=== PATIENT | male | born 1945 | race Caucasian/White ===

== ENCOUNTER → 2021-11-14 | Outpatient (CLI) | payer MEDICARE ==
--- NOTE | 2021-11-14 15:17 | PE ---
Nuclear medicine PET/CT HISTORY: Right upper lobe lung nodule, initial Patient received 10 mCi F-18 FDG intravenously and delayed scanning was performed from the skull base to the mid thighs. An attenuation correction and localization CT scan was performed. No comparisons Chest and neck: There is some asymmetric uptake along the musculature adjacent to the lamina of C2 ve rtebral body which may be due to to muscle contraction but is indeterminate. Uptake at the level of t he vallecula and base of the tongue may be physiologic but is also indeterminate. There is no cervica l or supraclavicular adenopathy. Right upper lobe lung nodule is present in the subpleural location p osteriorly measuring only 1 cm in size. There is no endobronchial lesion, pleural or pericardial effu kristy. Extensive emphysematous changes are suspected. There is no mediastinal or hilar adenopathy. Lef t axilla shows an enlarged node measuring approximately 11 mm in short axis, 2.8 cm in AP dimension, there is some associated uptake present. In the right axilla there are some small nodes with some mil d uptake noted. Coronary artery calcifications noted incidentally. ABDOMEN: Suspect there is some cortical thinning, scarring involving the right kidney. No adrenal upt joyce. Cholelithiasis is noted, no suspicious liver uptake or retroperitoneal adenopathy. Right and lef t groin also show nodes with some mild uptake but is not enlarged. No free fluid in the pelvis. Osseous structures show no suspicious uptake. IMPRESSION: Findings in the neck are nonspecific, dedicated contrast-enhanced neck CT may be of benef it. Right upper lobe lung nodule is suspicious. Indeterminate lashonda uptake as described.
== END | disposition home or self-care (01) ==
LOC: RADPETMAIN 10:51
PROVIDERS: ATTEND Family Medicine
DX: R91.1 Solitary pulmonary nodule (principal)
CPT/HCPCS: 78815; A9552

== ENCOUNTER → 2022-07-03 | Outpatient (CLI) | payer MEDICARE ==
--- NOTE | 2022-07-03 12:34 | CT ---
EXAMINATION TYPE: CT chest w con DATE OF EXAM: 07/03/2022 COMPARISON: PET CT November 14, 2021 HISTORY: nodules, recent covid/pneumonia CT DLP: 624 mGycm. Automated Exposure Control for Dose Reduction was Utilized. TECHNIQUE: CT scan of the thorax is performed following with IV Contrast, patient injected with 70cc mL of Isovue 300. FINDINGS: LUNGS: Moderate diffuse underlying emphysematous change is identified. Fairly stable 9 mm peripheral right upper lobe nodule axial image 20 from PET/CT. No new greater than 5 mm pulmonary nodules or mas ses. There is new irregular consolidation with air bronchograms in the right middle lobe and some adj acent groundglass opacity correlating with patient's history of recent pneumonia. Some less prominent irregular consolidation medial right lower lobe axial image 56 is noted. Left lung grossly clear. MEDIASTINUM: There are no new greater than 1 cm hilar or mediastinal lymph nodes. Small pericardial e ffusion is redemonstrated. Coronary artery calcification is again seen. No cardiomegaly. There is mod erate to severe peripheral plaque in the left subclavian artery causing stenosis under 50%. OTHER: Slightly prominent but subcentimeter benign-appearing bilateral axillary lymph nodes are redem onstrated. Intraluminal gallstones in contracted gallbladder redemonstrated. There are prominent but simple appearing thin-walled cyst in the right kidney mid to lower pole level redemonstrated. IMPRESSION: Stable slightly hypermetabolic near 1.0 cm posterior right upper lobe nodule. No new nodu les or adenopathy seen.
== END | disposition home or self-care (01) ==
LOC: RADCTMAIN 10:56
PROVIDERS: ATTEND Internal Medicine Critical Care Medicine
DX: R91.1 Solitary pulmonary nodule (principal)
CPT/HCPCS: 82565; 84520; 71260; 36415; Q9967

== ENCOUNTER 2023-03-29 15:05 | Inpatient (IN) | payer MEDICARE ==
[2023-03-29] MEDS ORDERED: IPRATROPIUM 0.5 MG/2.5 ML NEBU INHALATION STA (15:19)
[2023-03-29] MEDS ORDERED: methylPREDNISolone SOD SUCCI 125 MG/2 ML VIAL IV STA (15:19)
[2023-03-29] MEDS ORDERED: SODIUM CHLORIDE 0.9% 500 ML 500 ML IV STA (15:19)
[2023-03-29] MEDS ORDERED: ALBUTEROL NEBULIZED 2.5 MG/3 ML INHALATION STA (15:19)
--- NOTE | 2023-03-29 15:23 | ED ---
General Adult HPI - General Chief complaint: Shortness of Breath Stated complaint: SOB Time Seen by Provider: 03/29/23 15:10 Source: patient, RN notes reviewed, old records reviewed Mode of arrival: ambulatory Limitations: no limitations - History of Present Illness Initial comments: This is a 77-year-old male who presents emergency Department with a past medical history significant for emphysema. Patient continues to smoke. Patient states over the last few days his breathing is getting considerably worse and he spent doing treatments every 4 hours and it's not helping. Patient states he is not on any home steroids at this time. Patient states he has been coughing a lot more coughing up quite a bit of sputum. Patient denies any fever chills. Patient denies any headache patient denies numbness weakness. Patient denies chest pain. Patient denies any palpitations. Patient denies any swelling in the legs or calf tenderness. - Related Data Allergies Allergy/AdvReac Type Severity Reaction Status Date / Time No Known Allergies Allergy Verified 03/29/23 15:09 Review of Systems ROS Statement: Those systems with pertinent positive or pertinent negative responses have been documented in the HPI. ROS Other: All systems not noted in ROS Statement are negative. Past Medical History Past Medical History: COPD History of Any Multi-Drug Resistant Organisms: None Reported Past Surgical History: No Surgical Hx Reported Smoking Status: Current every day smoker Past Alcohol Use History: None Reported Past Drug Use History: None Reported General Exam - General Exam Comments Initial Comments: GENERAL: Patient is well-developed and well-nourished. Patient is nontoxic and well- hydrated and is in moderate distress. ENT: Neck is soft and supple. No significant lymphadenopathy is noted. Oropharynx is clear. Moist mucous membranes. Neck has full range of motion without eliciting any pain. EYES: The sclera were anicteric and conjunctiva were pink and moist. Extraocular movements were intact and pupils were equal round and reactive to light. Eyelids were unremarkable. PULMONARY: Expiratory wheezing with diminished breath sounds CARDIOVASCULAR: There is a regular rate and rhythm without any murmurs gallops or rubs. ABDOMEN: Soft and nontender with normal bowel sounds. SKIN: Skin is clear with no lesions or rashes and otherwise unremarkable. NEUROLOGIC: Patient is alert and oriented x3. Cranial nerves II through XII are grossly intact. Motor and sensory are also intact. Normal speech, volume and content. Symmetrical smile. MUSCULOSKELETAL: Normal extremities with adequate strength and full range of motion. No lower extremity swelling or edema. No calf tenderness. LYMPHATICS: No significant lymphadenopathy is noted PSYCHIATRIC: Normal psychiatric evaluation. Limitations: no limitations Course Vital Signs 03/29/23 03/29/23 03/29/23 15:07 15:32 15:54 Temperature 98.1 F Pulse Rate 101 H 102 H Respiratory 28 H 24 Rate Blood Pressure 191/82 O2 Sat by Pulse 89 L Oximetry 03/29/23 03/29/23 03/29/23 16:05 16:14 16:24 Temperature Pulse Rate 102 H 98 98 Respiratory Rate Blood Pressure O2 Sat by Pulse Oximetry Medical Decision Making - Medical Decision Making EKG was interpreted by myself shows a sinus rhythm at 90 bpm AL interval 156 dresses 70 922 intervals 326 QTC is 381. Patient's EKG shows no ST segment elevation or depression Was pt. sent in by a medical professional or institution (, PA, BAG ADJUSTER, urgent care, hospital, or alf...) When possible be specific @ -No Did you speak to anyone other than the patient for history (EMS, parent, family, police, friend...)? What history was obtained from this source @ -Patient's sons gave some of the history Did you review nursing and triage notes (agree or disagree)? Why? @ -I reviewed and agree with nursing and triage notes Were old charts reviewed (outside hosp., previous admission, EMS record, old EKG, old radiological studies, urgent care reports/EKG's, alf records)? Report findings @ -I reviewed prior radiological studies and prior lab work on this patient Differential Diagnosis (chest pain, altered mental status, abdominal pain women, abdominal pain men, vaginal bleeding, weakness, fever, dyspnea, syncope, headache, dizziness, GI bleed, back pain, seizure, CVA, palpatations, mental health, musculoskeletal)? @ -Differential Dyspnea: Coronary syndrome, arrhythmia, tamponade, asthma, COPD, pulmonary embolism, pneumonia, pneumothorax, pulmonary effusion, anaphylaxis, diabetic ketoacidosis, flailed chest, pulmonary contusion, diaphragmatic rupture, anemia, neuromuscular, this is not meant to be an all-inclusive list. EKG interpreted by me (3pts min.). @ -As above X-rays interpreted by me (1pt min.). @ -Chest x-ray showed no acute abnormality CT interpreted by me (1pt min.). @ -None done U/S interpreted by me (1pt. min.). @ -None done What testing was considered but not performed or refused? (CT, X-rays, U/S, labs)? Why? @ -None What meds were considered but not given or refused? Why? @ -None Did you discuss the management of the patient with other professionals (professionals i.e. , PA, BAG ADJUSTER, lab, RT, psych nurse, psychosocial rehabilitation counselor, final finisher forging dies, teacher, loans officer, bottle caser)? Give summary @ -I spoke with some physicians agreed to admit the patient admitted the patient I wrote admitting orders Was smoking cessation discussed for >3mins.? @ -Yes Was critical care preformed (if so, how long)? @ -No Were there social determinants of health that impacted care today? How? (Homelessness, low income, unemployed, alcoholism, drug addiction, transportation, low edu. Level, literacy, decrease access to med. care, fdc, rehab)? @ -No Was there de-escalation of care discussed even if they declined (Discuss DNR or withdrawal of care, Hospice)? DNR status @ -No What co-morbidities impacted this encounter? (DM, HTN, Smoking, COPD, CAD, Cancer, CVA, ARF, Chemo, Hep., AIDS, mental health diagnosis, sleep apnea, morbid obesity)? @ -None Was patient admitted / discharged? Hospital course, mention meds given and route, prescriptions, significant lab abnormalities, going to OR and other pertinent info. @ -Patient received multiple breathing treatments and steroids in the emergency department he was feeling considerably better at this time. Patient also was given antibiotics 1 g of Rocephin at this time Undiagnosed new problem with uncertain prognosis? @ -No Drug Therapy requiring intensive monitoring for toxicity (Heparin, Nitro, Insulin, Cardizem)? @ -No Were any procedures done? @ -No Diagnosis/symptom? @ -Acute exacerbation of COPD Acute, or Chronic, or Acute on Chronic? @ -Acute Uncomplicated (without systemic symptoms) or Complicated (systemic symptoms)? @ -Complicated Side effects of treatment? @ -No Exacerbation, Progression, or Severe Exacerbation? @ -No Poses a threat to life or bodily function? How? (Chest pain, [place], ND, pneumonia, PE, COPD, DKA, ARF, appy, cholecystitis, CVA, Diverticulitis, Homicidal, Suicidal, threat to staff... and all critical care pts) @ -Yes this could lead to hypoxia and end organ dysfunction - Lab Data Result diagrams: 03/29/23 15:26 03/29/23 15: Lab Results 03/29/23 03/29/23 03/29/23 Range/Units 15:26 15: 15: WBC 13.3 H (3.8-10.6) k/uL RBC 5.32 (4.30-5.90) m/uL Hgb 17.3 (13.0-17.5) gm/dL Hct 50.9 (39.0-53.0) % MCV 95.7 (80.0-100.0) fL MCH 32.6 (25.0-35.0) pg MCHC 34.1 (31.0-37.0) g/dL RDW 13.5 (11.5-15.5) % Plt Count 301 (150-450) k/uL MPV 8.3 Neutrophils % 89 % Lymphocytes % 4 % Monocytes % 6 % Eosinophils % 1 % Basophils % 0 % Neutrophils # 11.8 H (1.3-7.7) k/uL Lymphocytes # 0.5 L (1.0-4.8) k/uL Monocytes # 0.8 (0-1.0) k/uL Eosinophils # 0.1 (0-0.7) k/uL Basophils # 0.0 (0-0.2) k/uL PT 10.3 (9.0-12.0) sec INR 1.0 (<1.2) APTT 24.7 (22.0-30.0) sec Sodium 138 (137-145) mmol/L Potassium 4.1 (3.5-5.1) mmol/L Chloride 101 (98-107) mmol/L Carbon Dioxide 29 (22-30) mmol/L Anion Gap 8 mmol/L BUN 27 H (9-20) mg/dL Creatinine 0.84 (0.66-1.25) mg/dL Est GFR (CKD-EPI)AfAm >90 (>60 ml/min/1.73 sqM) Est GFR (CKD-EPI)NonAf 85 (>60 ml/min/1.73 sqM) Glucose 195 H (74-99) mg/dL Plasma Lactic Acid Juan (0.7-2.0) mmol/L Calcium 9.6 (8.4-10.2) mg/dL Magnesium 2.1 (1.6-2.3) mg/dL Total Bilirubin 0.5 (0.2-1.3) mg/dL AST 53 (17-59) U/L ALT 94 H (4-49) U/L Alkaline Phosphatase 118 (38-126) U/L Troponin I (0.000-0.034) ng/mL Total Protein 7.0 (6.3-8.2) g/dL Albumin 3.9 (3.5-5.0) g/dL 03/29/23 03/29/23 Range/Units 15:26 15:26 WBC (3.8-10.6) k/uL RBC (4.30-5.90) m/uL Hgb (13.0-17.5) gm/dL Hct (39.0-53.0) % MCV (80.0-100.0) fL MCH (25.0-35.0) pg MCHC (31.0-37.0) g/dL RDW (11.5-15.5) % Plt Count (150-450) k/uL MPV Neutrophils % % Lymphocytes % % Monocytes % % Eosinophils % % Basophils % % Neutrophils # (1.3-7.7) k/uL Lymphocytes # (1.0-4.8) k/uL Monocytes # (0-1.0) k/uL Eosinophils # (0-0.7) k/uL Basophils # (0-0.2) k/uL PT (9.0-12.0) sec INR (<1.2) APTT (22.0-30.0) sec Sodium (137-145) mmol/L Potassium (3.5-5.1) mmol/L Chloride (98-107) mmol/L Carbon Dioxide (22-30) mmol/L Anion Gap mmol/L BUN (9-20) mg/dL Creatinine (0.66-1.25) mg/dL Est GFR (CKD-EPI)AfAm (>60 ml/min/1.73 sqM) Est GFR (CKD-EPI)NonAf (>60 ml/min/1.73 sqM) Glucose (74-99) mg/dL Plasma Lactic Acid Juan 1.2 (0.7-2.0) mmol/L Calcium (8.4-10.2) mg/dL Magnesium (1.6-2.3) mg/dL Total Bilirubin (0.2-1.3) mg/dL AST (17-59) U/L ALT (4-49) U/L Alkaline Phosphatase (38-126) U/L Troponin I <0.012 (0.000-0.034) ng/mL Total Protein (6.3-8.2) g/dL Albumin (3.5-5.0) g/dL Disposition Clinical Impression: Acute exacerbation of chronic obstructive pulmonary disease (COPD) Disposition: ADMITTED IP TO THIS HOSP Referrals: Marcelo Espinoza MD [Primary Care Provider] - 1-2 days Time of Disposition: 17:15
[2023-03-29 16:07] LABS: Basophils % (A) 0 %; Eosinophils # (A) 0.1 k/uL (0-0.7); Eosinophils % (A) 1 %; HCT 50.9 % (39.0-53.0); HGB 17.3 gm/dL (13.0-17.5); Lymphocytes # (A) 0.5 k/uL (1.0-4.8); Lymphocytes % (A) 4 %; MCH 32.6 pg (25.0-35.0); MCHC 34.1 g/dL (31.0-37.0); MCV 95.7 fL (80.0-100.0); Mean Platelet Volume 8.3; Monocytes # (A) 0.8 k/uL (0-1.0); Monocytes % (A) 6 %; Neutrophils # (A) 11.8 k/uL (1.3-7.7); Neutrophils % (A) 89 %; Platelet Count 301 k/uL (150-450); RBC 5.32 m/uL (4.30-5.90); RDW 13.5 % (11.5-15.5); WBC 13.3 k/uL (3.8-10.6)
[2023-03-29 16:19] LABS: Partial Thromboplastin Time 24.7 sec (22.0-30.0); Prothrombin Time 10.3 sec (9.0-12.0)
[2023-03-29 16:22] LABS: ALT 94 U/L (4-49); AST 53 U/L (17-59); African American GFR (CKD) >90 (>60 ml/min/1.73 sqM); Albumin 3.9 g/dL (3.5-5.0); Alkaline Phosphatase 118 U/L (38-126); Anion Gap 8 mmol/L; Blood Urea Nitrogen 27 mg/dL (9-20); Calcium 9.6 mg/dL (8.4-10.2); Carbon Dioxide 29 mmol/L (22-30); Chloride 101 mmol/L (98-107); Glucose 195 mg/dL (74-99); Magnesium 2.1 mg/dL (1.6-2.3); Non-African American GFR(CKD) 85 (>60 ml/min/1.73 sqM); Potassium 4.1 mmol/L (3.5-5.1); Sodium 138 mmol/L (137-145); Total Bilirubin 0.5 mg/dL (0.2-1.3)
--- NOTE | 2023-03-29 16:47 | XR ---
EXAMINATION TYPE: XR chest 2V DATE OF EXAM: 03/29/2023 COMPARISON: None INDICATION: Difficulty breathing or breath TECHNIQUE: Frontal and lateral views of the chest are obtained. FINDINGS: The heart size is normal. The pulmonary vasculature is normal. The lungs are clear. There may be some pectus excavatum. There is hyperinflation flattening the diaph ragms compatible with COPD. IMPRESSION: 1. No acute pulmonary process. 2. COPD
[2023-03-29] MEDS ORDERED: NALOXONE 0.4 MG/ML 1 ML VIAL IVP PRN (17:24)
[2023-03-29] MEDS ORDERED: IPRATROPIUM-ALBUTEROL 3 ML NEB INHALATION PRN (17:34)
[2023-03-29] MEDS: methylPREDNISolone SOD SUCCI 125 MG/2 ML VIAL IV SCH ×2 (17:36→23:22)
[2023-03-29] MEDS ORDERED: IPRATROPIUM-ALBUTEROL 3 ML NEB INHALATION SCH (20:00)
[2023-03-29] MEDS: AMOXIC-POT CLAV 875-125MG 1 EACH TAB PO SCH (20:19)
[2023-03-30] MEDS: IPRATROPIUM-ALBUTEROL 3 ML NEB INHALATION SCH ×6 (00:35→21:05)
--- NOTE | 2023-03-30 01:39 | P.HPIM ---
History of Present Illness H&P Date: 03/29/23 Chief Complaint: Shortness of breath 77-year-old male with COPD not on home ox GEN He is coming in with few day history of peripheral shortness of breath with increased productive coughing denies any associated fevers chills or chest pains in his any associated runny nose of congestion denies any chest pain denies any nausea or vomiting denies any sick contacts denies any recent Lower hospital stay. He patient admits to continued to smoke, however he quit over the weekend due to difficulty in breathing. He's been using his and he lives at home frequently without much benefit or if he is not on home oxygen He admits to tobacco smoking denies alcohol and drugs Upon sedation to the ED his oxygen sat patient was 89% on room air Review of Systems Pertinent positives as noted in HPI. All other systems were reviewed and are negative Past Medical History Past Medical History: COPD History of Any Multi-Drug Resistant Organisms: None Reported Past Surgical History: No Surgical Hx Reported Smoking Status: Current every day smoker Past Alcohol Use History: None Reported Past Drug Use History: None Reported Medications and Allergies Home Medications Medication Instructions Recorded Confirmed Type Albuterol Inhaler [Ventolin Hfa 2 puff INHALATION RT-QID PRN 03/29/23 03/29/23 History Inhaler] Aspirin EC [Ecotrin Low Dose] 81 mg PO DAILY 03/29/23 03/29/23 History Atorvastatin [Lipitor] 20 mg PO HS 03/29/23 03/29/23 History Camu Camu Vitamin C 1000mg 1 tab PO DAILY 03/29/23 03/29/23 History Cholecalciferol [Vitamin D3 (125 125 mcg PO DAILY 03/29/23 03/29/23 History Mcg = 5000 Iu)] Cyanocobalamin (Vitamin B-12) 1,000 mcg PO DAILY 03/29/23 03/29/23 History [Vitamin B-12] Fish Oil/Dha/Epa [Fish Oil 1,200 1 cap PO DAILY 03/29/23 03/29/23 History mg Fish Oil] Fluticasone/Umeclidin/Vilanter 1 puff INHALATION RT-DAILY 03/29/23 03/29/23 History [Trelegy Ellipta 100-62.5-25] Ipratropium-Albuterol Nebulize 3 ml INHALATION RT-Q4H 03/29/23 03/29/23 History [Duoneb 0.5 mg-3 mg/3 ml Soln] Magnesium Oxide [Mag-Ox] 250 mg PO DAILY 03/29/23 03/29/23 History Zinc 240mg 1 cap PO DAILY 03/29/23 03/29/23 History Allergies Allergy/AdvReac Type Severity Reaction Status Date / Time No Known Allergies Allergy Verified 03/29/23 17:30 Physical Exam Vitals: Vital Signs Temp Pulse Resp BP Pulse Ox 03/29/23 19:00 93 20 159/96 95 03/29/23 18:00 100 03/29/23 17:45 100 03/29/23 17:33 90 24 127/82 95 03/29/23 16:24 98 03/29/23 16:14 98 03/29/23 16:05 102 H 03/29/23 15:54 102 H 03/29/23 15:32 24 03/29/23 15:07 98.1 F 101 H 28 H 191/82 89 L Intake and Output 03/29/23 03/29/23 03/29/23 06:59 14:59 22:59 Other: Weight 70.307 kg Constitutional: No acute distress, conversant, pleasant Eyes: Anicteric sclerae, moist conjunctiva, Pupils equal round reactive to light ENMT: NC/AT Oropharynx clear, no erythema, or exudates Neck: Supple, no masses, or JVD No carotid bruits No thyromegaly Lungs: Diminished breath sounds throughout with expiratory wheezing Clear to percussion Normal respiratory effort, no accessory muscle use Cardiovascular: Heart regular in rate and rhythm, No murmurs, gallops, or rubs No peripheral edema Abdominal: Soft Nontender, no guarding, rebound or rigidity Abdomen moving with respiration Normoactive bowel sounds No hepatomegaly, No splenomegaly No palpable mass No abdominal wall hernia noted Skin: Normal temperature, tone, texture, turgor Extremities: No digital cyanosis Pedal pulses intact and symmetrical Radial pulses intact and symmetrical No calf tenderness Psychiatric: Alert and oriented to person, place and time Appropriate affect Neuro Muscles Strength 5/5 in all 4 extremities Sensation to light touch grossly present throughout Cranial nerves II-XII grossly intact Lymphatics: no palpable cervical or supraclavicular lymph nodes Results CBC & Chem 7: 03/29/23 15:26 03/29/23 15:26 Labs: Abnormal Lab Results - Last 24 Hours (Table) 03/29/23 03/29/23 Range/Units 15:26 15:26 WBC 13.3 H (3.8-10.6) k/uL Neutrophils # 11.8 H (1.3-7.7) k/uL Lymphocytes # 0.5 L (1.0-4.8) k/uL BUN 27 H (9-20) mg/dL Glucose 195 H (74-99) mg/dL ALT 94 H (4-49) U/L Assessment and Plan Assessment: 77-year-old male with COPD not on home oxygen coming in for progressive ramses rtness of breath or discussed the case with the ED doctor patient with chronic supplemental oxygen, accepted the admission for acute COPD exacerbation with anticipated length of stay more than 2 midnights acute hypoxic respiratory failure secondary to acute COPD exacerbation Supplemental oxygen as needed Systemic IV steroids with methylprednisolone 60 mg every 6 hours Nebulizer with DuoNeb's every 2 hours when necessary Continue Symbicort Initiate patient on Augmentin twice a day Blood work reviewed white count slightly elevated at 13.3 afebrile chest x-ray showed no acute infiltrates 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
[2023-03-30] MEDS: methylPREDNISolone SOD SUCCI 125 MG/2 ML VIAL IV SCH ×3 (06:00→17:51)
[2023-03-30] MEDS ORDERED: SYMBICORT 80-4.5 MCG INHALER INHALATION SCH (08:00)
[2023-03-30] MEDS: ASPIRIN 81 MG PO SCH (11:54)
[2023-03-30] MEDS: AMOXIC-POT CLAV 875-125MG 1 EACH TAB PO SCH ×2 (11:55→20:07)
[2023-03-30] MEDS: ENOXAPARIN 40 MG/0.4 ML SYRINGE SQ SCH (11:55)
--- NOTE | 2023-03-30 12:52 | P.CNPUL ---
History of Present Illness Consult date: 03/30/23 Requesting physician: Pattie Giraldo Reason for consult: COPD Chief complaint: Shortness of breath, cough, congestion History of present illness: This is a pleasant 77-year-old male patient with a known history of hyperlipidemia, chronic and ongoing tobacco dependence, chronic obstructive pul monary disease with an FEV1 value 34% of predicted. He is maintained on Trelegy and albuterol in the outpatient setting. Not oxygen or steroid dependent at this point. He presented here to the emergency room yesterday with complaints of increasing shortness of breath, cough and congestion. Chest x-ray reveals evidence of COPD but no acute pulmonary process. White count 13.3. Hemoglobin 17.3. Sodium 138. Potassium 4.1. Bicarb 29. BUN 27. Creatinine 0.84. Glucose 195. Troponin negative 1. He's been initiated on Solu-Medrol, Symbicort, DuoNeb inhalations. Empiric antibiotics in the form of Augmentin. He is seen today in consultation on the regular medical floor. He is currently sitting up in bed. Awake and alert in no acute distress. He is dyspneic with conversation. Dyspneic with minimal exertion. Maintaining O2 saturations in the 90s on 4 L/m per nasal cannula. Afebrile. Hemodynamically stable. Review of Systems REVIEW OF SYSTEMS: CONSTITUTIONAL: Denies any recent significant weight loss or weight gain. EYES: Denies change in vision. EARS, NOSE, MOUTH, THROAT: Denies headaches, denies sore throat. CARDIOVASCULAR: Denies chest pain, palpitations or syncopal episodes. RESPIRATORY: Positive for shortness of breath, cough, congestion no hemoptysis. GASTROINTESTINAL: Denies change in appetite, denies abdominal pain GENITOURINARY: Denies hematuria, denies infections. MUSKULOSKELETAL: Denies pain, denies swelling. INTEGUMENTARY: Denies rash, denies eczema. NEUROLOGICAL: Denies recent memory loss, no recent seizure activity. PSYCHIATRIC: Denies anxiety, denies depression. HEMATOLOGIC/LYMPHATIC: Denies anemia, denies enlarged lymph nodes. Past Medical History Past Medical History: COPD History of Any Multi-Drug Resistant Organisms: None Reported Past Surgical History: Adenoidectomy, Orthopedic Surgery, Tonsillectomy Past Anesthesia/Blood Transfusion Reactions: No Reported Reaction Past Psychological History: No Psychological Hx Reported Smoking Status: Current every day smoker Past Alcohol Use History: None Reported Past Drug Use History: None Reported Medications and Allergies Home Medications Medication Instructions Recorded Confirmed Type Albuterol Inhaler [Ventolin Hfa 2 puff INHALATION RT-QID PRN 03/29/23 03/29/23 History Inhaler] Aspirin EC [Ecotrin Low Dose] 81 mg PO DAILY 03/29/23 03/29/23 History Atorvastatin [Lipitor] 20 mg PO HS 03/29/23 03/29/23 History Camu Camu Vitamin C 1000mg 1 tab PO DAILY 03/29/23 03/29/23 History Cholecalciferol [Vitamin D3 (125 125 mcg PO DAILY 03/29/23 03/29/23 History Mcg = 5000 Iu)] Cyanocobalamin (Vitamin B-12) 1,000 mcg PO DAILY 03/29/23 03/29/23 History [Vitamin B-12] Fish Oil/Dha/Epa [Fish Oil 1,200 1 cap PO DAILY 03/29/23 03/29/23 History mg Fish Oil] Fluticasone/Umeclidin/Vilanter 1 puff INHALATION RT-DAILY 03/29/23 03/29/23 History [Trelegy Ellipta 100-62.5-25] Ipratropium-Albuterol Nebulize 3 ml INHALATION RT-Q4H 03/29/23 03/29/23 History [Duoneb 0.5 mg-3 mg/3 ml Soln] Magnesium Oxide [Mag-Ox] 250 mg PO DAILY 03/29/23 03/29/23 History Zinc 240mg 1 cap PO DAILY 03/29/23 03/29/23 History Allergies Allergy/AdvReac Type Severity Reaction Status Date / Time No Known Allergies Allergy Verified 03/29/23 17:30 Physical Exam Vitals: Vital Signs Temp Pulse Pulse Resp BP BP Pulse Ox 03/30/23 12:13 60 03/30/23 12:02 60 03/30/23 08:40 60 03/30/23 08:25 60 98 03/30/23 07:45 98.0 F 90 20 137/79 97 03/30/23 06:00 78 18 137/78 98 03/30/23 03:45 82 03/30/23 03:31 88 03/30/23 02:00 82 18 129/78 97 03/30/23 00:49 89 03/30/23 00:37 88 03/30/23 00:00 86 16 128/76 99 03/29/23 22:25 89 20 98 03/29/23 22:09 98 03/29/23 21:59 97 96 03/29/23 21:55 93 L 03/29/23 19:00 93 20 159/96 95 03/29/23 18:00 100 03/29/23 17:45 100 03/29/23 17:33 90 24 127/82 95 03/29/23 16:24 98 03/29/23 16:14 98 03/29/23 16:05 102 H 03/29/23 15:54 102 H 03/29/23 15:32 24 03/29/23 15:07 98.1 F 101 H 28 H 191/82 89 L Intake and Output 03/29/23 03/30/23 03/30/23 22:59 06:59 14:59 Other: Weight 70.307 kg 70.307 kg GENERAL EXAM: Alert, pleasant 77-year-old male, on 4 L nasal cannula, fairly comfortable in no apparent distress. HEAD: Normocephalic. EYES: Normal reaction of pupils, equal size. NOSE: Clear with pink turbinates. THROAT: No erythema or exudates. NECK: No masses, no JVD. CHEST: No chest wall deformity. LUNGS: Equal air entry with bilateral end expiratory wheeze, diminished. CVS: S1 and S2 normal with no audible murmur, regular rhythm. ABDOMEN: No hepatosplenomegaly, normal bowel sounds, no guarding or rigidity. SPINE: No scoliosis or deformity SKIN: No rashes CENTRAL NERVOUS SYSTEM: No focal deficits, tone is normal in all 4 extremities. EXTREMITIES: There is no peripheral edema. No clubbing, no cyanosis. Peripheral pulses are intact. Results - Laboratory Findings CBC and BMP: 03/29/23 15:26 03/29/23 15:26 PT/INR, D-dimer PT 10.3 sec (9.0-12.0) 03/29/23 15: INR 1.0 (<1.2) 03/29/23 15:26 Abnormal lab findings: Abnormal Labs 03/29/23 03/29/23 15:26 15:26 WBC 13.3 H Neutrophils # 11.8 H Lymphocytes # 0.5 L BUN 27 H Glucose 195 H ALT 94 H - Diagnostic Findings Chest x-ray: image reviewed (No acute pulmonary process) Assessment and Plan Assessment: Acute exacerbation of chronic obstructive pulmonary disease. Chest x-ray reveals no acute pulmonary process. Chronic and ongoing tobacco dependence of greater than 50 years Severe chronic obstructive pulmonary disease with an FEV1 value 34% of predicted Right upper lobe pulmonary nodule measuring 9 mm being followed in the outpatient setting Hyperlipidemia Plan: The patient was seen and evaluated Chest x-ray, labs and medications reviewed Discontinue Symbicort Add Pulmicort and Perforomist inhalations Continue DuoNeb inhalations Continue IV Solu-Medrol Continue empiric antibiotics Lovenox for DVT prophylaxis Educated regarding the importance of complete smoking cessation NicoDerm patch will be offered We will continue to follow and make further recommendations based on his clinical status I have personally seen and examined the patient, performed the documentation and the assessment and plan as written. Number of minutes spent on the visit: 20.
[2023-03-30] MEDS: NICOTINE 21MG/24HR PATCH TRANSDERM SCH (14:08)
--- NOTE | 2023-03-30 16:57 | P.PN ---
Subjective Progress Note Date: 03/30/23 Pt still reporting some dyspnea on exertion. Stil lhas some wheezing. Gen: awake, alert HEENT: normocephalic, atraumatic, good hearing acuity, moist mucous membranes Resp: good air exchange, breathing comfortably with no accessory muscle use, mild end expiratory wheezing CVS: good distal perfusion x 4, GI: soft, NTTP, ND : no SPT, no CVAT, sharp catheter not present MSK: no pitting edema, clubbing is present in both hands Neuro: non-focal, moving all extremities Psych: cooperative, euthymic mood Hospital course: 77-year-old male with COPD not on home oxygen coming in for progressive shortness of breath or discussed the case with the ED doctor patient with chronic supplemental oxygen, accepted the admission for acute COPD exacerbation. In the emergency room, patient was afebrile, 191/82, heart rate 101, 89% on room air. CBC shows leukocytosis at 13.3. Basic metabolic panel shows BUN of 27. Liver function test shows ALT of 94. Troponin is less than 0.012. Coags are unremarkable. Chest x-ray shows hyperinflation consistent with COPD, but no acute coronary processes. EKG shows normal sinus rhythm. His was discussed with the emergency room provider and decision was made to admit the patient or hospital for further management of COPD exacerbation. Assessment: Acute hypoxic respiratory failure secondary to acute COPD exacerbation Secondary polycythemia Plan: Today, patient is afebrile, 95/63, heart rate 69, 95% on 4 L nasal cannula Lab work reviewed in the hospital course above EKG and chest x-ray were personally interpreted noted in Hospital course above He is discuss with pulmonology today, I will add them on consultation due to likelihood of severe COPD in the setting of clubbing Continue duo nebs Continue steroids Continue Symbicort Continue Augmentin Patient is full code Objective - Vital Signs Vital signs: Vital Signs Temp 98.7 F 03/30/23 13:13 Pulse 69 03/30/23 13:13 Resp 20 03/30/23 13:13 BP 95/63 03/30/23 13:13 Pulse Ox 95 03/30/23 13:13 FiO2 Intake & Output 03/29/23 03/30/23 03/30/23 18:59 06:59 18:59 Weight 70.307 kg 70.307 kg - Labs CBC & Chem 7: 03/29/23 15:26 03/29/23 15:26
[2023-03-30] MEDS: ATORVASTATIN 20 MG TAB PO SCH (20:06)
[2023-03-30] MEDS: FORMOTEROL FUMARATE 20 MCG/2 ML NEBU INHALATION SCH (21:05)
[2023-03-30] MEDS: BUDESONIDE 1 MG/2 ML NEBU INHALATION SCH (21:05)
[2023-03-30] MEDS: MELATONIN 5 MG TABLET PO SCH (22:01)
[2023-03-31] MEDS: IPRATROPIUM-ALBUTEROL 3 ML NEB INHALATION SCH ×7 (00:48→23:06)
[2023-03-31] MEDS: methylPREDNISolone SOD SUCCI 125 MG/2 ML VIAL IV SCH ×5 (01:48→23:39)
[2023-03-31] MEDS: FORMOTEROL FUMARATE 20 MCG/2 ML NEBU INHALATION SCH ×2 (08:36→20:12)
[2023-03-31] MEDS: BUDESONIDE 1 MG/2 ML NEBU INHALATION SCH ×2 (08:36→20:12)
[2023-03-31] MEDS: NICOTINE 21MG/24HR PATCH TRANSDERM SCH (09:27)
[2023-03-31] MEDS: ENOXAPARIN 40 MG/0.4 ML SYRINGE SQ SCH (09:42)
[2023-03-31] MEDS: ASPIRIN 81 MG PO SCH (09:42)
[2023-03-31] MEDS: AMOXIC-POT CLAV 875-125MG 1 EACH TAB PO SCH ×2 (09:45→20:35)
--- NOTE | 2023-03-31 10:55 | P.PN ---
Subjective Progress Note Date: 03/31/23 This is a pleasant 77-year-old male patient with a known history of hyperlipidemia, chronic and ongoing tobacco dependence, chronic obstructive pulmonary disease with an FEV1 value 34% of predicted. He is maintained on Trelegy and albuterol in the outpatient setting. Not oxygen or steroid dependent at this point. He presented here to the emergency room yesterday with complaints of increasing shortness of breath, cough and congestion. Chest x-ray reveals evidence of COPD but no acute pulmonary process. White count 13.3. Hemoglobin 17.3. Sodium 138. Potassium 4.1. Bicarb 29. BUN 27. Creatinine 0.84. Glucose 195. Troponin negative 1. He's been initiated on Solu-Medrol, Symbicort, DuoNeb inhalations. Empiric antibiotics in the form of Augmentin. He is seen today in consultation on the regular medical floor. He is currently sitting up in bed. Awake and alert in no acute distress. He is dyspneic with conversation. Dyspneic with minimal exertion. Maintaining O2 saturations in the 90s on 4 L/m per nasal cannula. Afebrile. Hemodynamically stable. The patient is seen today 03/31/2023 in follow-up on the regular medical floor. He is currently sitting up in bed. Awake and alert in no acute distress. Breathing a bit easier today compared to yesterday. Maintaining good O2 saturations in the 90s on 35% FiO2 via Ventimask. Blood cultures reveal no growth to date. He remains on DuoNeb inhalations, Pulmicort and Perforomist inhalations, Solu-Medrol. NicoDerm patch in place. Empiric antibiotics in the form of Augmentin. Lovenox for DVT prophylaxis. Objective - Vital Signs Vital signs: Vital Signs Temp 97.6 F 03/31/23 07:09 Pulse 80 03/31/23 10:07 Resp 14 03/31/23 07:09 BP 108/69 03/31/23 07:09 Pulse Ox 96 03/31/23 07:09 FiO2 35 03/31/23 09:45 Intake & Output 03/30/23 03/31/23 03/31/23 18:59 06:59 18:59 Output Total 275 Balance -275 Weight 70.307 kg Output: Urine 275 Other: Voiding Method Urinal Urinal # Voids 1 - Exam GENERAL EXAM: Alert, 77-year-old male, on 35% FiO2 via Ventimask, comfortable in no apparent distress. HEAD: Normocephalic. EYES: Normal reaction of pupils, equal size. NOSE: Clear with pink turbinates. THROAT: No erythema or exudates. NECK: No masses, no JVD. CHEST: No chest wall deformity. LUNGS: Equal air entry with bilateral end expiratory wheeze, diminished. CVS: S1 and S2 normal with no audible murmur, regular rhythm. ABDOMEN: No hepatosplenomegaly, normal bowel sounds, no guarding or rigidity. SPINE: No scoliosis or deformity SKIN: No rashes CENTRAL NERVOUS SYSTEM: No focal deficits, tone is normal in all 4 extremities. EXTREMITIES: There is no peripheral edema. No clubbing, no cyanosis. Peripheral pulses are intact. - Labs CBC & Chem 7: 03/29/23 15:26 03/29/23 15:26 Labs: Microbiology - Last 24 Hours (Table) 03/29/23 15:26 Blood Culture - Preliminary Blood Assessment and Plan Assessment: Acute exacerbation of chronic obstructive pulmonary disease. Chest x-ray reveals no acute pulmonary process. Chronic and ongoing tobacco dependence of greater than 50 years Severe chronic obstructive pulmonary disease with an FEV1 value 34% of predicted Right upper lobe pulmonary nodule measuring 9 mm being followed in the outpatient setting Hyperlipidemia Plan: The patient was seen and evaluated Medications reviewed Continue bronchodilators, steroids Continue empiric antibiotics Lovenox for DVT prophylaxis Again ducated regarding the importance of complete smoking cessation NicoDerm patch in place Probably home in the a.m. We will continue to follow I have personally seen and examined the patient, performed the documentation and the assessment and plan as written. Number of minutes spent on the visit: 10.
--- NOTE | 2023-03-31 14:30 | P.PN ---
Subjective Progress Note Date: 03/31/23 Pt still reporting some dyspnea on exertion. Stil lhas some wheezing. Gen: awake, alert HEENT: normocephalic, atraumatic, good hearing acuity, moist mucous membranes Resp: good air exchange, breathing comfortably with no accessory muscle use, mild end expiratory wheezing CVS: good distal perfusion x 4, GI: soft, NTTP, ND : no SPT, no CVAT, sharp catheter not present MSK: no pitting edema, clubbing is present in both hands Neuro: non-focal, moving all extremities Psych: cooperative, euthymic mood Hospital course: 77-year-old male with COPD not on home oxygen coming in for progressive shortness of breath or discussed the case with the ED doctor patient with chronic supplemental oxygen, accepted the admission for acute COPD exacerbation. In the emergency room, patient was afebrile, 191/82, heart rate 101, 89% on room air. CBC shows leukocytosis at 13.3. Basic metabolic panel shows BUN of 27. Liver function test shows ALT of 94. Troponin is less than 0.012. Coags are unremarkable. Chest x-ray shows hyperinflation consistent with COPD, but no acute coronary processes. EKG shows normal sinus rhythm. His was discussed with the emergency room provider and decision was made to admit the patient or hospital for further management of COPD exacerbation. Assessment: Acute hypoxic respiratory failure secondary to acute COPD exacerbation Secondary polycythemia Plan: Today, HR controlled at 80, 108/69 Discussed with pulm, will need one more day of steroids and standing nebulizers inpt, then d/c home after home oxygen evaluation Continue duo nebs Continue steroids Continue Symbicort Continue Augmentin Patient is full code Objective - Vital Signs Vital signs: Vital Signs Temp 97.6 F 03/31/23 07:09 Pulse 80 03/31/23 13:03 Resp 14 03/31/23 07:09 BP 108/69 03/31/23 07:09 Pulse Ox 96 03/31/23 07:09 FiO2 35 03/31/23 09:45 Intake & Output 03/30/23 03/31/23 03/31/23 18:59 06:59 18:59 Output Total 275 Balance -275 Weight 70.307 kg Output: Urine 275 Other: Voiding Method Urinal Urinal # Voids 1 - Labs CBC & Chem 7: 03/29/23 15:26 03/29/23 15:26 Labs: Microbiology - Last 24 Hours (Table) 03/29/23 15:26 Blood Culture - Preliminary Blood
[2023-03-31] MEDS: ATORVASTATIN 20 MG TAB PO SCH (20:35)
[2023-03-31] MEDS: MELATONIN 5 MG TABLET PO SCH (20:35)
[2023-04-01] MEDS: IPRATROPIUM-ALBUTEROL 3 ML NEB INHALATION SCH ×5 (04:48→21:45)
[2023-04-01] MEDS: methylPREDNISolone SOD SUCCI 125 MG/2 ML VIAL IV SCH ×3 (05:12→17:33)
[2023-04-01] MEDS: ENOXAPARIN 40 MG/0.4 ML SYRINGE SQ SCH (08:13)
[2023-04-01] MEDS: ASPIRIN 81 MG PO SCH (08:13)
[2023-04-01] MEDS: NICOTINE 21MG/24HR PATCH TRANSDERM SCH (08:13)
[2023-04-01] MEDS: AMOXIC-POT CLAV 875-125MG 1 EACH TAB PO SCH ×2 (08:13→22:00)
[2023-04-01] MEDS: BUDESONIDE 1 MG/2 ML NEBU INHALATION SCH ×2 (09:54→21:45)
[2023-04-01] MEDS: FORMOTEROL FUMARATE 20 MCG/2 ML NEBU INHALATION SCH ×2 (09:54→21:45)
--- NOTE | 2023-04-01 11:28 | P.PN ---
Subjective Progress Note Date: 04/01/23 This is a pleasant 77-year-old male patient with a known history of hyperlipidemia, chronic and ongoing tobacco dependence, chronic obstructive pulmonary disease with an FEV1 value 34% of predicted. He is maintained on Trelegy and albuterol in the outpatient setting. Not oxygen or steroid dependent at this point. He presented here to the emergency room yesterday with complaints of increasing shortness of breath, cough and congestion. Chest x-ray reveals evidence of COPD but no acute pulmonary process. White count 13.3. Hemoglobin 17.3. Sodium 138. Potassium 4.1. Bicarb 29. BUN 27. Creatinine 0.84. Glucose 195. Troponin negative 1. He's been initiated on Solu-Medrol, Symbicort, DuoNeb inhalations. Empiric antibiotics in the form of Augmentin. He is seen today in consultation on the regular medical floor. He is currently sitting up in bed. Awake and alert in no acute distress. He is dyspneic with conversation. Dyspneic with minimal exertion. Maintaining O2 saturations in the 90s on 4 L/m per nasal cannula. Afebrile. Hemodynamically stable. The patient is seen today 03/31/2023 in follow-up on the regular medical floor. He is currently sitting up in bed. Awake and alert in no acute distress. Breathing a bit easier today compared to yesterday. Maintaining good O2 saturations in the 90s on 35% FiO2 via Ventimask. Blood cultures reveal no growth to date. He remains on DuoNeb inhalations, Pulmicort and Perforomist inhalations, Solu-Medrol. NicoDerm patch in place. Empiric antibiotics in the form of Augmentin. Lovenox for DVT prophylaxis. The patient is seen today 04/01/2023 in follow-up on the regular medical floor. He is resting comfortably in bed. Awake and alert in no acute distress. Ventimask remains in place. O2 saturations in the upper 90s. Afebrile. Hemodynamically stable. He is continued on DuoNeb inhalations, Pulmicort and Perforomist inhalations, IV Solu-Medrol. Empiric antibiotics in the form of Augmentin. Nicotine patch in place. Lovenox for DVT prophylaxis. Objective - Vital Signs Vital signs: Vital Signs Temp 97.7 F 04/01/23 07:07 Pulse 88 04/01/23 10:16 Resp 24 04/01/23 11:15 BP 120/73 04/01/23 07:07 Pulse Ox 94 L 04/01/23 09:56 FiO2 35 03/31/23 09:45 Intake & Output 03/31/23 04/01/23 04/01/23 18:59 06:59 18:59 Output Total 250 700 Balance -250 -700 Output: Urine 250 700 Other: Voiding Method Urinal Urinal Urinal # Voids 2 - Exam GENERAL EXAM: Alert, 77-year-old male, resting comfortably in bed, on 35% FiO2 via Ventimask, in no apparent distress. HEAD: Normocephalic. EYES: Normal reaction of pupils, equal size. NOSE: Clear with pink turbinates. THROAT: No erythema or exudates. NECK: No masses, no JVD. CHEST: No chest wall deformity. LUNGS: Equal air entry with bilateral end expiratory wheeze, diminished. CVS: S1 and S2 normal with no audible murmur, regular rhythm. ABDOMEN: No hepatosplenomegaly, normal bowel sounds, no guarding or rigidity. SPINE: No scoliosis or deformity SKIN: No rashes CENTRAL NERVOUS SYSTEM: No focal deficits, tone is normal in all 4 extremities. EXTREMITIES: There is no peripheral edema. No clubbing, no cyanosis. Peripheral pulses are intact. - Labs CBC & Chem 7: 03/29/23 15:26 03/29/23 15:26 Labs: Microbiology - Last 24 Hours (Table) 03/29/23 15:26 Blood Culture - Preliminary Blood Assessment and Plan Assessment: Acute exacerbation of chronic obstructive pulmonary disease. Chest x-ray reveals no acute pulmonary process. Chronic and ongoing tobacco dependence of greater than 50 years Severe chronic obstructive pulmonary disease with an FEV1 value 34% of predicted Right upper lobe pulmonary nodule measuring 9 mm being followed in the outpatient setting Hyperlipidemia Plan: The patient was seen and evaluated Medications reviewed Transition from Ventimask to nasal cannula Evaluate for possible home oxygen Cleared for discharge from the pulmonary standpoint Continue his home pulmonary medications Complete a prednisone taper Complete course of antibiotics Again educated regarding the importance of complete smoking cessation NicoDerm patch in place Follow up in the office in 1 week I have personally seen and examined the patient, performed the documentation and the assessment and plan as written. Number of minutes spent on the visit: 10.
--- NOTE | 2023-04-01 14:26 | P.DS ---
Providers Date of admission: 03/29/23 17:35 Expected date of discharge: 04/01/23 Attending physician: Estephania Daugherty DO Consults: 03/30/23 09:27 Consult Physician Routine Consulting Provider: Liset Diez Consult Reason/Comments: COPD Do you want consulting provider notified?: Yes [facility] Course: Discharge Diagnosis: Acute hypoxic respiratory failure Acute COPD exacerbation Suspected community-acquired pneumonia Secondary polycythemia Hospital Course: 77-year-old male with COPD not on home oxygen coming in for progressive shortness of breath or discussed the case with the ED doctor patient with chronic supplemental oxygen, accepted the admission for acute COPD exacerbation. In the emergency room, patient was afebrile, 191/82, heart rate 101, 89% on room air. CBC shows leukocytosis at 13.3. Basic metabolic panel shows BUN of 27. Liver function test shows ALT of 94. Troponin is less than 0.012. Coags are unremarkable. Chest x-ray shows hyperinflation consistent with COPD, but no acute coronary processes. EKG shows normal sinus rhythm. Patient admitted for COPD exacerbation. Pulmonology consulted. Patient requiring O2 at the time of discharge, on steroids and antibiotics. Follow up with PCP and pulmonology. Patient seen and examined at bedside. Vital signs reviewed and stable. General: nontoxic, no distress, appears at stated age Derm: warm, dry Head: atraumatic, normocephalic, symmetric Eyes: EOMI, no lid lag, anicteric sclera Mouth: no lip lesion, mucus membranes moist Cardiovascular: S1S2 reg, no murmur Lungs: CTA bilateral, no rhonchi, no rales , no accessory muscle use Abdominal: soft, nontender to palpation, no guarding, no appreciable organomegaly Ext: no gross muscle atrophy, no edema, no contractures Neuro: CN II-XI grossly intact, no focal neuro deficits Psych: Alert, oriented, appropriate affect A total of 36 minutes of time were spent preparing this complex discharge summary. Patient was discharged on 04/01/23 at 14:17. Patient Condition at Discharge: Stable Plan - Discharge Summary Discharge Rx Participant: Yes New Discharge Prescriptions: New predniSONE [Deltasone] 40 mg PO DAILY #4 tab Amoxic-Pot Clav 875-125Mg [Augmentin 875-125] 1 each PO Q12HR #4 tab Continue Zinc 240mg 1 cap PO DAILY Cyanocobalamin (Vitamin B-12) [Vitamin B-12] 1,000 mcg PO DAILY Cholecalciferol [Vitamin D3 (125 Mcg = 5000 Iu)] 125 mcg PO DAILY Atorvastatin [Lipitor] 20 mg PO HS Aspirin EC [Ecotrin Low Dose] 81 mg PO DAILY Magnesium Oxide [Mag-Ox] 250 mg PO DAILY Fish Oil/Dha/Epa [Fish Oil 1,200 mg Fish Oil] 1 cap PO DAILY Albuterol Inhaler [Ventolin Hfa Inhaler] 2 puff INHALATION RT-QID PRN PRN Reason: Shortness Of Breath Ipratropium-Albuterol Nebulize [Duoneb 0.5 mg-3 mg/3 ml Soln] 3 ml INHALATION RT-Q4H Fluticasone/Umeclidin/Vilanter [Trelegy Ellipta 100-62.5-25] 1 puff INHALATION RT-DAILY Camu Camu Vitamin C 1000mg 1 tab PO DAILY Discharge Medication List Albuterol Inhaler [Ventolin Hfa Inhaler] 2 puff INHALATION RT-QID PRN 03/29/23 [History] Aspirin EC [Ecotrin Low Dose] 81 mg PO DAILY 03/29/23 [History] Atorvastatin [Lipitor] 20 mg PO HS 03/29/23 [History] Camu Camu Vitamin C 1000mg 1 tab PO DAILY 03/29/23 [History] Cholecalciferol [Vitamin D3 (125 Mcg = 5000 Iu)] 125 mcg PO DAILY 03/29/23 [History] Cyanocobalamin (Vitamin B-12) [Vitamin B-12] 1,000 mcg PO DAILY 03/29/23 [History] Fish Oil/Dha/Epa [Fish Oil 1,200 mg Fish Oil] 1 cap PO DAILY 03/29/23 [History] Fluticasone/Umeclidin/Vilanter [Trelegy Ellipta 100-62.5-25] 1 puff INHALATION RT-DAILY 03/29/23 [History] Ipratropium-Albuterol Nebulize [Duoneb 0.5 mg-3 mg/3 ml Soln] 3 ml INHALATION RT-Q4H 03/29/23 [History] Magnesium Oxide [Mag-Ox] 250 mg PO DAILY 03/29/23 [History] Zinc 240mg 1 cap PO DAILY 03/29/23 [History] Amoxic-Pot Clav 875-125Mg [Augmentin 875-125] 1 each PO Q12HR #4 tab 04/01/23 [Rx] predniSONE [Deltasone] 40 mg PO DAILY #4 tab 04/01/23 [Rx] Follow up Appointment(s)/Referral(s): Liset Diez MD [STAFF PHYSICIAN] - 1 Week Marcelo Espinoza MD [Primary Care Provider] - 1-2 days Patient Instructions/Handouts: COPD (Chronic Obstructive Pulmonary Disease) (DC) Activity/Diet/Wound Care/Special Instructions: Please see your PCP and pulmonology. Discharge Disposition: HOME WITH HOME HEALTH SERVICES
[2023-04-01] MEDS: ATORVASTATIN 20 MG TAB PO SCH (22:00)
[2023-04-01] MEDS: MELATONIN 5 MG TABLET PO SCH (22:00)
[2023-04-02] MEDS: methylPREDNISolone SOD SUCCI 125 MG/2 ML VIAL IV SCH ×3 (00:36→13:42)
[2023-04-02] MEDS: IPRATROPIUM-ALBUTEROL 3 ML NEB INHALATION SCH ×5 (00:59→14:03)
[2023-04-02] MEDS: BUDESONIDE 1 MG/2 ML NEBU INHALATION SCH (08:04)
[2023-04-02] MEDS: FORMOTEROL FUMARATE 20 MCG/2 ML NEBU INHALATION SCH (08:05)
[2023-04-02 08:47] VITALS: BP 135/82; TEMP 98.2
[2023-04-02] MEDS: ENOXAPARIN 40 MG/0.4 ML SYRINGE SQ SCH (09:31)
[2023-04-02] MEDS: ASPIRIN 81 MG PO SCH (09:31)
[2023-04-02] MEDS: AMOXIC-POT CLAV 875-125MG 1 EACH TAB PO SCH (09:32)
[2023-04-02] MEDS: NICOTINE 21MG/24HR PATCH TRANSDERM SCH (09:32)
--- NOTE | 2023-04-02 11:32 | P.DS ---
Providers Date of admission: 03/29/23 17:35 Expected date of discharge: 04/02/23 Attending physician: Estephania Daugehrty DO Consults: 03/30/23 09:27 Consult Physician Routine Consulting Provider: Liset Diez Consult Reason/Comments: COPD Do you want consulting provider notified?: Yes [facility] Course: Discharge Diagnosis: Acute hypoxic respiratory failure Acute COPD exacerbation Suspected community-acquired pneumonia Secondary polycythemia Hospital Course: 77-year-old male with COPD not on home oxygen coming in for progressive shortness of breath or discussed the case with the ED doctor patient with chronic supplemental oxygen, accepted the admission for acute COPD exacerbation. In the emergency room, patient was afebrile, 191/82, heart rate 101, 89% on room air. CBC shows leukocytosis at 13.3. Basic metabolic panel shows BUN of 27. Liver function test shows ALT of 94. Troponin is less than 0.012. Coags are unremarkable. Chest x-ray shows hyperinflation consistent with COPD, but no acute coronary processes. EKG shows normal sinus rhythm. Patient admitted for COPD exacerbation. Pulmonology consulted. Patient requiring O2 at the time of discharge, on steroids and antibiotics. Follow up with PCP and pulmonology. Patient seen and examined at bedside. Vital signs reviewed and stable. General: nontoxic, no distress, appears at stated age Derm: warm, dry Head: atraumatic, normocephalic, symmetric Eyes: EOMI, no lid lag, anicteric sclera Mouth: no lip lesion, mucus membranes moist Cardiovascular: S1S2 reg, no murmur Lungs: CTA bilateral, no rhonchi, no rales , no accessory muscle use Abdominal: soft, nontender to palpation, no guarding, no appreciable organomegaly Ext: no gross muscle atrophy, no edema, no contractures Neuro: CN II-XI grossly intact, no focal neuro deficits Psych: Alert, oriented, appropriate affect A total of 36 minutes of time were spent preparing this complex discharge summary. Patient was discharged on 04/02/23 at 9:51. Patient Condition at Discharge: Stable Plan - Discharge Summary Discharge Rx Participant: Yes New Discharge Prescriptions: New predniSONE [Deltasone] 40 mg PO DAILY #4 tab Amoxic-Pot Clav 875-125Mg [Augmentin 875-125] 1 each PO Q12HR #4 tab Continue Zinc 240mg 1 cap PO DAILY Cyanocobalamin (Vitamin B-12) [Vitamin B-12] 1,000 mcg PO DAILY Cholecalciferol [Vitamin D3 (125 Mcg = 5000 Iu)] 125 mcg PO DAILY Atorvastatin [Lipitor] 20 mg PO HS Aspirin EC [Ecotrin Low Dose] 81 mg PO DAILY Magnesium Oxide [Mag-Ox] 250 mg PO DAILY Fish Oil/Dha/Epa [Fish Oil 1,200 mg Fish Oil] 1 cap PO DAILY Albuterol Inhaler [Ventolin Hfa Inhaler] 2 puff INHALATION RT-QID PRN PRN Reason: Shortness Of Breath Ipratropium-Albuterol Nebulize [Duoneb 0.5 mg-3 mg/3 ml Soln] 3 ml INHALATION RT-Q4H Fluticasone/Umeclidin/Vilanter [Trelegy Ellipta 100-62.5-25] 1 puff INHALATION RT-DAILY [place] Vitamin C 1000mg 1 tab PO DAILY Discharge Medication List Albuterol Inhaler [Ventolin Hfa Inhaler] 2 puff INHALATION RT-QID PRN 03/29/23 [History] Aspirin EC [Ecotrin Low Dose] 81 mg PO DAILY 03/29/23 [History] Atorvastatin [Lipitor] 20 mg PO HS 03/29/23 [History] [place] Vitamin C 1000mg 1 tab PO DAILY 03/29/23 [History] Cholecalciferol [Vitamin D3 (125 Mcg = 5000 Iu)] 125 mcg PO DAILY 03/29/23 [History] Cyanocobalamin (Vitamin B-12) [Vitamin B-12] 1,000 mcg PO DAILY 03/29/23 [History] Fish Oil/Dha/Epa [Fish Oil 1,200 mg Fish Oil] 1 cap PO DAILY 03/29/23 [History] Fluticasone/Umeclidin/Vilanter [Trelegy Ellipta 100-62.5-25] 1 puff INHALATION RT-DAILY 03/29/23 [History] Ipratropium-Albuterol Nebulize [Duoneb 0.5 mg-3 mg/3 ml Soln] 3 ml INHALATION RT-Q4H 03/29/23 [History] Magnesium Oxide [Mag-Ox] 250 mg PO DAILY 03/29/23 [History] Zinc 240mg 1 cap PO DAILY 03/29/23 [History] Amoxic-Pot Clav 875-125Mg [Augmentin 875-125] 1 each PO Q12HR #4 tab 04/01/23 [Rx] predniSONE [Deltasone] 40 mg PO DAILY #4 tab 04/01/23 [Rx] Follow up Appointment(s)/Referral(s): Liset Diez MD [STAFF PHYSICIAN] - 04/19/23 9:00 am [facility],Equipment [NON-STAFF] - 1 Week (Call [facility] when you get home and they will deliver your o2 concentrator) Marcelo Espinoza MD [Primary Care Provider] - 04/20/23 10:00 am Patient Instructions/Handouts: COPD (Chronic Obstructive Pulmonary Disease) (DC) Activity/Diet/Wound Care/Special Instructions: Please see your PCP and pulmonology. Discharge Disposition: HOME WITH HOME HEALTH SERVICES
--- NOTE | 2023-04-02 12:15 | P.PN ---
Subjective Progress Note Date: 04/02/23 This is a pleasant 77-year-old male patient with a known history of hyperlipidemia, chronic and ongoing tobacco dependence, chronic obstructive pulmonary disease with an FEV1 value 34% of predicted. He is maintained on Trelegy and albuterol in the outpatient setting. Not oxygen or steroid dependent at this point. He presented here to the emergency room yesterday with complaints of increasing shortness of breath, cough and congestion. Chest x-ray reveals evidence of COPD but no acute pulmonary process. White count 13.3. Hemoglobin 17.3. Sodium 138. Potassium 4.1. Bicarb 29. BUN 27. Creatinine 0.84. Glucose 195. Troponin negative 1. He's been initiated on Solu-Medrol, Symbicort, DuoNeb inhalations. Empiric antibiotics in the form of Augmentin. He is seen today in consultation on the regular medical floor. He is currently sitting up in bed. Awake and alert in no acute distress. He is dyspneic with conversation. Dyspneic with minimal exertion. Maintaining O2 saturations in the 90s on 4 L/m per nasal cannula. Afebrile. Hemodynamically stable. The patient is seen today 03/31/2023 in follow-up on the regular medical floor. He is currently sitting up in bed. Awake and alert in no acute distress. Breathing a bit easier today compared to yesterday. Maintaining good O2 saturations in the 90s on 35% FiO2 via Ventimask. Blood cultures reveal no growth to date. He remains on DuoNeb inhalations, Pulmicort and Perforomist inhalations, Solu-Medrol. NicoDerm patch in place. Empiric antibiotics in the form of Augmentin. Lovenox for DVT prophylaxis. The patient is seen today 04/01/2023 in follow-up on the regular medical floor. He is resting comfortably in bed. Awake and alert in no acute distress. Ventimask remains in place. O2 saturations in the upper 90s. Afebrile. Hemodynamically stable. He is continued on DuoNeb inhalations, Pulmicort and Perforomist inhalations, IV Solu-Medrol. Empiric antibiotics in the form of Augmentin. Nicotine patch in place. Lovenox for DVT prophylaxis. The patient is seen today 04/02/2023 in follow-up on the regular medical floor. Currently sitting up in bed. Awake and alert in no acute distress. He is currently maintaining O2 saturations up to 98% on 3 L/m per nasal cannula. He did desaturate to 89% on room air while walking. He is continued on DuoNeb inhalations, Pulmicort and Perforomist inhalations, IV Solu-Medrol. Empiric antibiotics in the form of Augmentin. Nicotine patch in place. Lovenox for DVT prophylaxis. Objective - Vital Signs Vital signs: Vital Signs Temp 98.2 F 04/02/23 08:11 Pulse 76 04/02/23 11:28 Resp 19 04/02/23 08:11 BP 135/82 04/02/23 08:11 Pulse Ox 98 04/02/23 08:11 FiO2 35 03/31/23 09:45 Intake & Output 04/01/23 04/02/23 04/02/23 18:59 06:59 18:59 Intake Total 300 200 Output Total 200 300 Balance 100 -300 200 Intake: Oral 300 200 Output: Urine 200 300 Other: Voiding Method Urinal Urinal - Exam GENERAL EXAM: Alert, 77-year-old male, sitting up in bed, on 3 L nasal cannula, in no apparent distress. HEAD: Normocephalic. EYES: Normal reaction of pupils, equal size. NOSE: Clear with pink turbinates. THROAT: No erythema or exudates. NECK: No masses, no JVD. CHEST: No chest wall deformity. LUNGS: Equal air entry with bilateral end expiratory wheeze, diminished. CVS: S1 and S2 normal with no audible murmur, regular rhythm. ABDOMEN: No hepatosplenomegaly, normal bowel sounds, no guarding or rigidity. SPINE: No scoliosis or deformity SKIN: No rashes CENTRAL NERVOUS SYSTEM: No focal deficits, tone is normal in all 4 extremities. EXTREMITIES: There is no peripheral edema. No clubbing, no cyanosis. Peripheral pulses are intact. - Labs CBC & Chem 7: 03/29/23 15:26 03/29/23 15:26 Labs: Microbiology - Last 24 Hours (Table) 03/29/23 15:26 Blood Culture - Preliminary Blood Assessment and Plan Assessment: Acute exacerbation of chronic obstructive pulmonary disease. Chest x-ray reveals no acute pulmonary process. Chronic and ongoing tobacco dependence of greater than 50 years Severe chronic obstructive pulmonary disease with an FEV1 value 34% of predicted Right upper lobe pulmonary nodule measuring 9 mm being followed in the outpatient setting Hyperlipidemia Plan: The patient was seen and evaluated Cleared for discharge from the pulmonary standpoint Continue his home pulmonary medications Complete a prednisone taper Complete a course of antibiotics Again educated regarding the importance of complete smoking cessation NicoDerm patch in place Follow up in the office in 1 week I have personally seen and examined the patient, performed the documentation and the assessment and plan as written. Number of minutes spent on the visit: 10.
[2023-04-02 14:09] VITALS: RESP 20
[2023-04-02 14:25] VITALS: PULSE 74
== END 2023-04-02 14:46 | disposition home health service (06) | DRG 189 ==
LOC: EC 15:05 → 5NMEDONC 17:35 → 4SSUR 03-30 04:57
PROVIDERS: ADMIT Internal Medicine; ATTEND Internal Medicine
DX: J96.01 Acute respiratory failure with hypoxia (principal); J18.9 Pneumonia, unspecified organism; J90 Pleural effusion, not elsewhere classified; J43.9 Emphysema, unspecified; E78.5 Hyperlipidemia, unspecified; F17.210 Nicotine dependence, cigarettes, uncomplicated; R91.1 Solitary pulmonary nodule; D75.1 Secondary polycythemia; Z79.82 Long term (current) use of aspirin; Z79.899 Other long term (current) drug therapy; Z99.81 Dependence on supplemental oxygen; Z71.6 Tobacco abuse counseling
CPT/HCPCS: 36415; 71046; 80053; 83605; 83735; 84484; 85025; 85610; 85730; 87040; 93005; 94640; 94760; 96365; 96366; 96375; 96376; 99285

== ENCOUNTER → 2023-08-13 | Outpatient (CLI) | payer MEDICARE ==
[2023-08-13 11:01] LABS: African American GFR (CKD) 65 (>60 ml/min/1.73 sqM); Blood Urea Nitrogen 29 mg/dL (9-20); Non-African American GFR(CKD) 57 (>60 ml/min/1.73 sqM)
--- NOTE | 2023-08-13 14:08 | CT ---
EXAMINATION TYPE: CT chest w con DATE OF EXAM: 08/13/2023 COMPARISON: 07/03/2022 HISTORY: f/u lung nodule, SOB CT DLP: 404.8 mGycm Automated exposure control for dose reduction was used. TECHNIQUE: CT scan of the chest is performed with IV Contrast, patient injected with 80 mL of Isovue 300. MIP I mages are created on CT scanner and reviewed. 3D reconstructed images are created on an independent w orkstation and reviewed. FINDINGS: There are persistent marked emphysematous changes. There is mild peribronchial cuffing in the lower l obes bilaterally. The infiltrate seen in the right middle lobe on the prior study has cleared interval. The right upper lobe pulmonary nodules essentially stable or slightly smaller in size. There is been interval development of subpleural parenchymal nodular density in the right lower lobe anteriorly measuring 14 mm. There are a few adjacent ill-defined densities as well which are not seen in this region on the prior study. There is no pleural effusion or pneumothorax. The great vessels chest are normal is no mediastinal, hilar or axillary adenopathy. Limited scanning through the upper abdomen reveals no large laminated gallstone. No focal osseous lesions are seen. IMPRESSION: 1. New nodular densities in the right lung base anteriorly and further workup is warranted. Neoplasm not excluded. 2. Stable emphysematous changes. 3. No acute cardiopulmonary disease. Prior right middle lobe pneumonia has cleared in the interval. 4. Large gallstone.
== END | disposition home or self-care (01) ==
LOC: RADCTMAIN 10:12
PROVIDERS: ATTEND Internal Medicine Critical Care Medicine
DX: K80.20 Calculus of gallbladder without cholecystitis without obstruction (principal); J43.9 Emphysema, unspecified; R91.8 Other nonspecific abnormal finding of lung field
CPT/HCPCS: 82565; 84520; 71260; 36415; Q9967

== ENCOUNTER 2023-12-23 09:09 | Inpatient (IN) | payer MEDICARE ==
--- NOTE | 2023-12-23 09:12 | ED ---
General Adult HPI - General Stated complaint: Yashira Time Seen by Provider: 12/23/23 09:11 - History of Present Illness Initial comments: Dictation was produced using [employer] dictation software. please excuse any grammatical, word or spelling errors. Chief Complaint: 78-year-old male presents to the emergency department for dyspnea History of Present Illness: Patient 78-year-old male has past medical history of COPD. He has long history of tobacco abuse. He has not had a cigarette in approximately 8 months. Over the last 48 hours she has developed worsening dyspnea. He has been on prednisone however this morning his symptoms became significantly worse prompting family to contact EMS. Patient denies any chest pain. States that it feels like his usual COPD. EMS gave patient a DuoNeb and also some Solu-Medrol. Patient experienced minimal relief from those interventions. Denies any fever, chills or night sweats. The ROS documented in this emergency department record has been reviewed and confirmed by me. Those systems with pertinent positive or negative responses have been documented in the HPI. All other systems are other negative and/or noncontributory. - Related Data Home Medications Medication Instructions Recorded Confirmed Aspirin EC [Ecotrin Low Dose] 81 mg PO DAILY 03/29/23 12/23/23 Atorvastatin [Lipitor] 20 mg PO HS 03/29/23 12/23/23 Fluticasone/Umeclidin/Vilanter 1 puff INHALATION RT-DAILY 12/23/23 12/23/23 [Trelegy Ellipta 200-62.5-25] Allergies Allergy/AdvReac Type Severity Reaction Status Date / Time metformin AdvReac Mild Unknown Verified 12/23/23 11:44 metformin AdvReac Abdominal Uncoded 12/23/23 09:59 Pain Review of Systems ROS Statement: Those systems with pertinent positive or pertinent negative responses have been documented in the HPI. ROS Other: All systems not noted in ROS Statement are negative. Past Medical History Past Medical History: COPD History of Any Multi-Drug Resistant Organisms: None Reported Past Surgical History: Adenoidectomy, Orthopedic Surgery, Tonsillectomy Past Anesthesia/Blood Transfusion Reactions: No Reported Reaction Past Psychological History: No Psychological Hx Reported Smoking Status: Current every day smoker Past Alcohol Use History: None Reported Past Drug Use History: None Reported General Exam - General Exam Comments Initial Comments: PHYSICAL EXAM: General Impression: Alert and oriented x3, dyspneic HEENT: Normocephalic atraumatic, extra-ocular movements intact, pupils equal and reactive to light bilaterally, mucous membranes moist. Cardiovascular: Heart regular rate and rhythm Chest: 3 word sentences, dyspneic, retracting, tachypneic, poor air exchange with auscultation of the lungs bilaterally Abdomen: abdomen soft, non-tender, non-distended, no organomegaly Musculoskeletal: Pulses present and equal in all extremities, no peripheral edema Motor: no focal deficits noted Neurological: CN II-XII grossly intact, no focal motor or sensory deficits noted Skin: Intact with no visualized rashes Psych: Normal affect and mood Course Vital Signs 12/23/23 12/23/23 12/23/23 09:14 09:20 09:27 Temperature 98.6 F Pulse Rate 115 H Respiratory 24 Rate Blood Pressure 177/87 144/81 O2 Sat by Pulse 99 99 98 Oximetry Fraction of 50 Inspired Oxygen (FIO2) 12/23/23 12/23/23 12/23/23 09:30 09:40 09:50 Temperature Pulse Rate 118 H 114 H 120 H Respiratory 31 H 26 H 26 H Rate Blood Pressure 177/87 144/81 141/87 O2 Sat by Pulse 98 99 98 Oximetry Fraction of Inspired Oxygen (FIO2) 12/23/23 12/23/23 12/23/23 10:00 10:06 10:10 Temperature Pulse Rate 118 H 120 H 120 H Respiratory 19 24 Rate Blood Pressure 141/87 138/83 O2 Sat by Pulse 98 98 Oximetry Fraction of Inspired Oxygen (FIO2) 12/23/23 12/23/23 12/23/23 10:20 10:30 10:40 Temperature Pulse Rate 117 H 113 H 113 H Respiratory 29 H 29 H 21 Rate Blood Pressure 121/88 121/88 126/85 O2 Sat by Pulse 98 98 98 Oximetry Fraction of Inspired Oxygen (FIO2) 12/23/23 12/23/23 12/23/23 10:50 11:00 11:05 Temperature Pulse Rate 113 H 112 H Respiratory 26 H 18 26 H Rate Blood Pressure 120/78 120/78 O2 Sat by Pulse 98 98 Oximetry Fraction of Inspired Oxygen (FIO2) 12/23/23 12/23/23 12/23/23 11:10 11:14 11:41 Temperature Pulse Rate 110 H 110 H Respiratory 23 27 H Rate Blood Pressure 139/90 138/89 O2 Sat by Pulse 98 98 Oximetry Fraction of 40 Inspired Oxygen (FIO2) 12/23/23 12/23/23 12/23/23 11:54 12:24 13:03 Temperature Pulse Rate 109 H 108 H 115 H Respiratory 22 Rate Blood Pressure 154/103 O2 Sat by Pulse 97 Oximetry Fraction of Inspired Oxygen (FIO2) 12/23/23 13:48 Temperature Pulse Rate 113 H Respiratory 28 H Rate Blood Pressure 142/98 O2 Sat by Pulse 97 Oximetry Fraction of Inspired Oxygen (FIO2) EKG Findings - EKG Comments: EKG Findings:: My EKG interpretation: Ventricular rate 118, sinus tachycardia,. 159, cures 82, QTc 370. No MI prolongation, no QTC prolongation, no ST or T-wave changes noted. Overall, this EKG is unremarkable Medical Decision Making - Medical Decision Making Was pt. sent in by a medical professional or institution (, [facility]UNE, FOOD QUALITY TESTER, urgent care, hospital, or snf...) When possible be specific @ -No Did you speak to anyone other than the patient for history (EMS, parent, family, police, friend...)? What history was obtained from this source @ - from EMS as described above Did you review nursing and triage notes (agree or disagree)? Why? @ -I reviewed and agree with nursing and triage notes Were old charts reviewed (outside hosp., previous admission, EMS record, old EKG, old radiological studies, urgent care reports/EKG's, snf records)? Report findings @ -No old charts were reviewed Differential Diagnosis (chest pain, altered mental status, abdominal pain women, abdominal pain men, vaginal bleeding, musculoskeletal, weakness, fever, dyspnea, syncope, headache, dizziness, GI bleed, back pain, seizure, CVA, palpatations, mental health)? @ -Differential Dyspnea: Coronary syndrome, arrhythmia, tamponade, asthma, COPD, pulmonary embolism, pneumonia, pneumothorax, pulmonary effusion, anaphylaxis, diabetic ketoacidosis, flailed chest, pulmonary contusion, diaphragmatic rupture, anemia, neuromuscular, this is not meant to be an all-inclusive list. EKG interpreted by me (3pts min.). @ -See above X-rays interpreted by me (1pt min.). @ -Chest x-ray shows COPD otherwise no acute processes CT interpreted by me (1pt min.). @ -CT of the chest shows pulm nodules and perhaps some opacities suggesting pneumonia U/S interpreted by me (1pt. min.). @ -None done What testing was considered but not performed or refused? (CT, X-rays, U/S, labs)? Why? @ -None What meds were considered but not given or refused? Why? @ -None Did you discuss the management of the patient with other professionals (professionals i.e. , PA, FOOD QUALITY TESTER, lab, RT, psych nurse, social media marketer, epic prelude analyst, teacher, staff air tactical officer, case checker)? Give summary @ -Case discussed with hospitalist for admission. Case discussed with bench shear operator for ICU admission Was smoking cessation discussed for >3mins.? @ -No Was critical care preformed (if so, how long)? @ -Yes, 33 minutes Were there social determinants of health that impacted care today? How? (Homelessness, low income, unemployed, alcoholism, drug addiction, transportation, low edu. Level, literacy, decrease access to med. care, alf, rehab)? @ -No Was there de-escalation of care discussed even if they declined (Discuss DNR or withdrawal of care, Hospice)? DNR status @ -No What co-morbidities impacted this encounter? (DM, HTN, Smoking, COPD, CAD, Cancer, CVA, ARF, Chemo, Hep., AIDS, mental health diagnosis, sleep apnea, morbi d obesity)? @ -None Was patient admitted / discharged? Hospital course, mention meds given and rout e, prescriptions, significant lab abnormalities, going to OR and other pertinent info. @ -78-year-old male presents to the emergency department for acute dyspnea. He has history of COPD. Vital signs upon arrival shows tachycardia tachypnea. He does show signs of increased work of breathing. Patient given breathing treatment placed on BiPAP. Patient improved however still dyspneic appearing. Laboratory evaluation obtained. Leukocytosis 19.3. Rest of labs within acceptable limits. Patient be admitted to ICU for severe COPD exacerbation. Undiagnosed new problem with uncertain prognosis? @ -No Drug Therapy requiring intensive monitoring for toxicity (Heparin, Nitro, Insulin, Cardizem)? @ -No Were any procedures done? @ -No Diagnosis/symptom? Acute, or Chronic, or Acute on Chronic? Uncomplicated (without systemic symptoms) or Complicated (systemic symptoms)? @ -Respiratory failure secondary to COPD exacerbation Side effects of treatment? @ -No Exacerbation, Progression, or Severe Exacerbation? @ -No Poses a threat to life or bodily function? How? (Chest pain, [place], [place], pneumonia, PE, COPD, DKA, ARF, appy, cholecystitis, CVA, Diverticulitis, Homicidal, Suicidal, threat to staff... and all critical care pts) @ -yes - Lab Data Result diagrams: 12/23/23 09:23 12/23/23 09: Lab Results 12/23/23 12/23/23 12/23/23 Range/Units 09:23 09: 09:23 WBC 19.3 H (3.8-10.6) k/uL RBC 4.45 (4.30-5.90) m/uL Hgb 14.1 (13.0-17.5) gm/dL Hct 44.8 (39.0-53.0) % MCV 100.6 H (80.0-100.0) fL MCH 31.6 (25.0-35.0) pg MCHC 31.4 (31.0-37.0) g/dL RDW 13.5 (11.5-15.5) % Plt Count 366 (150-450) k/uL MPV 9.2 Neutrophils % (Manual) 58 % Band Neuts % (Manual) 17 % Lymphocytes % (Manual) 11 % Monocytes % (Manual) 13 % Metamyelocytes % 2 % Neutrophils # (Manual) 14.40 H (1.3-7.7) k/uL Lymphocytes # (Manual) 2.12 (1.0-4.8) k/uL Monocytes # (Manual) 2.51 H (0-1.0) k/uL Metamyelocytes # (Man) 0.39 H (0) k/uL Nucleated RBCs 0 (0-0) /100 WBC Manual Slide Review Performed Toxic Granulation Present Hypochromasia Slight PT (10.0-12.5) sec INR (<1.2) APTT (22.0-30.0) sec VBG pH (7.31-7.41) VBG pCO2 (37-51) mmHg VBG HCO3 (24-28) mmol/L Sodium 139 (137-145) mmol/L Potassium 4.9 (3.5-5.1) mmol/L Chloride 103 (98-107) mmol/L Carbon Dioxide 23 (22-30) mmol/L Anion Gap 13 mmol/L BUN 25 H (9-20) mg/dL Creatinine 1.24 (0.66-1.25) mg/dL Est GFR (CKD-EPI)AfAm 65 (>60 ml/min/1.73 sqM) Est GFR (CKD-EPI)NonAf 56 (>60 ml/min/1.73 sqM) Glucose 346 H (74-99) mg/dL Lactic Ac Sepsis Rflx Plasma Lactic Acid Juan 2.5 H* (0.7-2.0) mmol/L Calcium 9.4 (8.4-10.2) mg/dL Magnesium 1.8 (1.6-2.3) mg/dL Troponin I (0.000-0.034) ng/mL NT-Pro-B Natriuret Pep pg/mL Influenza Type A (PCR) (Not Detectd) Influenza Type B (PCR) (Not Detectd) RSV (PCR) (Not Detectd) SARS-CoV-2 (PCR) (Not Detectd) 12/23/23 12/23/23 12/23/23 Range/Units 09:23 09:30 09:30 WBC (3.8-10.6) k/uL RBC (4.30-5.90) m/uL Hgb (13.0-17.5) gm/dL Hct (39.0-53.0) % MCV (80.0-100.0) fL MCH (25.0-35.0) pg MCHC (31.0-37.0) g/dL RDW (11.5-15.5) % Plt Count (150-450) k/uL MPV Neutrophils % (Manual) % Band Neuts % (Manual) % Lymphocytes % (Manual) % Monocytes % (Manual) % Metamyelocytes % % Neutrophils # (Manual) (1.3-7.7) k/uL Lymphocytes # (Manual) (1.0-4.8) k/uL Monocytes # (Manual) (0-1.0) k/uL Metamyelocytes # (Man) (0) k/uL Nucleated RBCs (0-0) /100 WBC Manual Slide Review Toxic Granulation Hypochromasia PT 10.7 (10.0-12.5) sec INR 1.0 (<1.2) APTT 24.6 (22.0-30.0) sec VBG pH 7.29 L (7.31-7.41) VBG pCO2 52 H (37-51) mmHg VBG HCO3 25 (24-28) mmol/L Sodium (137-145) mmol/L Potassium (3.5-5.1) mmol/L Chloride (98-107) mmol/L Carbon Dioxide (22-30) mmol/L Anion Gap mmol/L BUN (9-20) mg/dL Creatinine (0.66-1.25) mg/dL Est GFR (CKD-EPI)AfAm (>60 ml/min/1.73 sqM) Est GFR (CKD-EPI)NonAf (>60 ml/min/1.73 sqM) Glucose (74-99) mg/dL Lactic Ac Sepsis Rflx Plasma Lactic Acid Juan (0.7-2.0) mmol/L Calcium (8.4-10.2) mg/dL Magnesium (1.6-2.3) mg/dL Troponin I 0.017 (0.000-0.034) ng/mL NT-Pro-B Natriuret Pep pg/mL Influenza Type A (PCR) (Not Detectd) Influenza Type B (PCR) (Not Detectd) RSV (PCR) (Not Detectd) SARS-CoV-2 (PCR) (Not Detectd) 12/23/23 12/23/23 12/23/23 Range/Units 09:30 10:06 11:49 WBC (3.8-10.6) k/uL RBC (4.30-5.90) m/uL Hgb (13.0-17.5) gm/dL Hct (39.0-53.0) % MCV (80.0-100.0) fL MCH (25.0-35.0) pg MCHC (31.0-37.0) g/dL RDW (11.5-15.5) % Plt Count (150-450) k/uL MPV Neutrophils % (Manual) % Band Neuts % (Manual) % Lymphocytes % (Manual) % Monocytes % (Manual) % Metamyelocytes % % Neutrophils # (Manual) (1.3-7.7) k/uL Lymphocytes # (Manual) (1.0-4.8) k/uL Monocytes # (Manual) (0-1.0) k/uL Metamyelocytes # (Man) (0) k/uL Nucleated RBCs (0-0) /100 WBC Manual Slide Review Toxic Granulation Hypochromasia PT (10.0-12.5) sec INR (<1.2) APTT (22.0-30.0) sec VBG pH (7.31-7.41) VBG pCO2 (37-51) mmHg VBG HCO3 (24-28) mmol/L Sodium (137-145) mmol/L Potassium (3.5-5.1) mmol/L Chloride (98-107) mmol/L Carbon Dioxide (22-30) mmol/L Anion Gap mmol/L BUN (9-20) mg/dL Creatinine (0.66-1.25) mg/dL Est GFR (CKD-EPI)AfAm (>60 ml/min/1.73 sqM) Est GFR (CKD-EPI)NonAf (>60 ml/min/1.73 sqM) Glucose (74-99) mg/dL Lactic Ac Sepsis Rflx Y Plasma Lactic Acid Juan (0.7-2.0) mmol/L Calcium (8.4-10.2) mg/dL Magnesium (1.6-2.3) mg/dL Troponin I (0.000-0.034) ng/mL NT-Pro-B Natriuret Pep 3420 pg/mL Influenza Type A (PCR) Not Detected (Not Detectd) Influenza Type B (PCR) Not Detected (Not Detectd) RSV (PCR) Not Detected (Not Detectd) SARS-CoV-2 (PCR) Not Detected (Not Detectd) Disposition Clinical Impression: COPD exacerbation Disposition: ADMITTED IP TO THIS HOSP Condition: Critical Decision Time: 14:12
[2023-12-23] MEDS: ALBUTEROL NEBULIZED 2.5 MG/3 ML INHALATION STA ×2 (09:25→12:24)
[2023-12-23] MEDS: IPRATROPIUM 0.5 MG/2.5 ML NEBU INHALATION STA ×2 (09:26→12:24)
[2023-12-23 09:49] LABS: Partial Thromboplastin Time 24.6 sec (22.0-30.0); Prothrombin Time 10.7 sec (10.0-12.5)
[2023-12-23 09:58] LABS: African American GFR (CKD) 65 (>60 ml/min/1.73 sqM); Anion Gap 13 mmol/L; Blood Urea Nitrogen 25 mg/dL (9-20); Calcium 9.4 mg/dL (8.4-10.2); Carbon Dioxide 23 mmol/L (22-30); Chloride 103 mmol/L (98-107); Glucose 346 mg/dL (74-99); Magnesium 1.8 mg/dL (1.6-2.3); Non-African American GFR(CKD) 56 (>60 ml/min/1.73 sqM); Potassium 4.9 mmol/L (3.5-5.1); Sodium 139 mmol/L (137-145)
[2023-12-23 10:00] LABS: HCT 44.8 % (39.0-53.0); HGB 14.1 gm/dL (13.0-17.5); Hypochromasia Slight; MCH 31.6 pg (25.0-35.0); MCHC 31.4 g/dL (31.0-37.0); MCV 100.6 fL (80.0-100.0); Mean Platelet Volume 9.2; Platelet Count 366 k/uL (150-450); RBC 4.45 m/uL (4.30-5.90); RDW 13.5 % (11.5-15.5); WBC 19.3 k/uL (3.8-10.6)
[2023-12-23 10:04] LABS: VBG PH 7.29 (7.31-7.41)
--- NOTE | 2023-12-23 10:20 | XR ---
EXAMINATION TYPE: XR chest 1V portable DATE OF EXAM: 12/23/2023 9:53 AM CLINICAL INDICATION:Male, 78 years old with history of dyspnea; COMPARISON: Chest radiographs from 03/29/2023. TECHNIQUE: XR chest 1V portable Frontal view of the chest. FINDINGS: Lungs/Pleura: Bibasilar atelectasis. No evidence for pneumothorax, pleural effusion or focal consolid ation. Pulmonary vascularity: Unremarkable. Heart/mediastinum: Cardiomediastinal silhouette is unremarkable. Musculoskeletal: No acute osseous pathology. IMPRESSION: COPD with basilar atelectasis, No acute cardiopulmonary disease/process.
[2023-12-23 10:51] LABS: Band Neutrophils % 17 %; Lymphocytes # (M) 2.12 k/uL (1.0-4.8); Metamyelocytes # (M) 0.39 k/uL (0); Metamyelocytes % 2 %; Monocytes # (M) 2.51 k/uL (0-1.0); Neutrophils % (M) 58 %; Nucleated Red Blood Cells 0 /100 WBC (0-0); Total Cells Counted 200
[2023-12-23 10:55] LABS: Toxic Granulation Present
[2023-12-23] MEDS: LORazepam 2 MG/ML INJ IV STA (11:55)
--- NOTE | 2023-12-23 12:38 | CT ---
EXAMINATION TYPE: CT brain cspine wo con CT DLP: 1465.2 mGycm, Automated exposure control for dose reduction was used. DATE OF EXAM: 12/23/2023 11:48 AM COMPARISON: None. CLINICAL INDICATION:Male, 78 years old with history of fall; Fall TECHNIQUE: Brain: Multiple axial CT images of the brain were obtained without IV contrast. Cspine: Axial CT images from the skull base to the inferior aspect of T2 we obtained without intraven ous contrast. Coronal and sagittal reformatted images were also reviewed. FINDINGS: Brain: Extra-axial spaces: No abnormal extra-axial fluid collections. Ventricular system: Appear dilated in proportion to the degree of cerebral atrophy. Cerebral parenchyma: No increased attenuation to suggest acute intraparenchymal hemorrhage. The gra y-white matter interface appears maintained. Mild/moderate generalized brain atrophy. Patchy hypoat tenuating areas are seen within the cerebral white matter, nonspecific but most often seen with chron ic microvascular ischemic changes; moderate in degree. Cerebellum: No acute abnormality. Mass effect: No evidence of mass effect or midline shift. Intracranial vasculature: Atherosclerotic calcifications of the larger arteries near the skull base. Soft tissues: Normal. Visualized orbits: Orbital contents appear grossly intact. Calvarium/osseous structures: No evidence of calvarial fracture. Paranasal sinuses and mastoid air cells: Small mucous retention cyst or polyp in the right maxillary sinus. Nasal septal deviation towards the left. Ana bullosa on the right. Mastoid air cells are c lear. MRI is more sensitive for detecting acute processes such as infarct, and may be considered if clinica lly warranted. Cervical spine: Fracture: None seen. Developmental incomplete fusion noted along the posterior arch of C1 close to mi dline. Osseous structures, spinal canal/neural foramina: Craniocervical junction is intact with mild degener ative changes. Degenerative change of the anterior C1-C2 articulation. Evaluation is otherwise limite d by motion blurring however there appears to be mild multilevel degenerative disease and facet arthr osis, greatest at C6-C7 where disc marginal osteophytes and uncovertebral joint changes result in mod erate left and mild right neural foraminal stenosis. Mild canal stenosis. Vertebral alignment: No traumatic malalignment. Mild degenerative retrolisthesis of C6 over C7. Neck soft tissues: No acute finding.. Calcifications noted involving the cervical carotid arteries mo stly in the bifurcation regions, and along the aortic arch. Question possible soft tissue asymmetry o nly partially seen on the right along the right posterior oral cavity/pharynx. Other: Lung apices show no acute infiltrate or pneumothorax. Prominent reticular changes suggestive of scarring. IMPRESSION: CT head: 1. No CT evidence of an acute intracranial abnormality. 2. Atrophy and chronic microvascular ischemic white matter changes. CT cervical spine: 1. No evidence of acute cervical spine fracture or traumatic malalignment. 2. Mild cervical spondylosis. 3.Question possible soft tissue asymmetry only partially seen on the right along the right posterior oral cavity/pharynx. Correlate with direct visual inspection, and if needed a follow-up contrast CT n wade soft tissues may be considered.
--- NOTE | 2023-12-23 12:49 | CT ---
EXAMINATION TYPE: CT ChestAbdPelvis w con DATE OF EXAM: 12/23/2023 COMPARISON: CT chest 08/13/2022, no prior CT of the abdomen and pelvis. HISTORY: Dyspnea, Abdominal distention CT DLP: 913.9 mGycm Automated exposure control for dose reduction was used. CONTRAST: CT scan of the chest, abdomen and pelvis is performed without Oral Contrast and with IV Contrast, pat ient injected with 100 ml mL of Isovue 300. FINDINGS: CT chest: There is a stable 9 mm right upper lobe pulmonary nodule. There are scattered mild interstitial densi ties which are stable. There is mild increasing density in the right middle lobe and lingula which co uld represent acute pneumonic infiltrates and clinical correlation is recommended. There are increasi ng masslike densities in the left lung base laterally. Neoplasm is not excluded. There is no pneumothorax or pleural effusion. There are mild emphysematous changes. The great vessels chest are normal there's no mediastinal, hilar or axillary adenopathy No focal osseous lesions are seen. CT abdomen and pelvis: There is a large gallstone but no gallbladder distention, wall thickening or pericholecystic fluid Th ere is no biliary ductal dilatation. There is no focal mass or organomegaly involving the liver, pancreas, spleen or adrenal glands.. There is no solid renal mass or hydronephrosis. There is a large simple cortical cyst of the right ki dney a few scattered simple cortical cysts bilaterally. There is no retroperitoneal adenopathy or hem orrhage in the caliber of the abdominal aorta is normal. The bowel loops are normal in caliber and there is no dilatation or obstruction. No inflammatory adan ges identified in the bowel wall and mesentery. There is no free intracranial air or fluid. There is no pelvic mass or adenopathy. There is no free fluid within the pelvis. No focal osseous lesions are seen. Soft tissue the abdomen and pelvis are normal. IMPRESSION: 1. 2 new nodular densities in the left lung base laterally and neoplasm is not excluded. 2. Increasing partially consolidative opacities in the anterior right middle lobe and in the lingula possibly indicating acute pneumonia. 3. Emphysematous changes are 4 stable 9 mm right upper lobe pulmonary nodule. 5. Cholelithiasis with no other significant abnormality within the abdomen or pelvis.
[2023-12-23] MEDS ORDERED: NALOXONE 0.4 MG/ML 1 ML VIAL IVP PRN (13:25)
[2023-12-23] MEDS: MAGNESIUM SULFATE-D5W PMX 1 GM in DEXTROSE/WATER 1 100ML.BAG IVPB SCH (13:50)
[2023-12-23] MEDS: AZITHROMYCIN 500 MG TAB PO SCH (13:50)
[2023-12-23] MEDS: predniSONE 20 MG TAB PO SCH (13:50)
[2023-12-23] MEDS: methylPREDNISolone SOD SUCCI 125 MG/2 ML VIAL IV SCH (14:44)
[2023-12-23] MEDS: FUROSEMIDE 10 MG/ML 4 ML VIAL IV STA ×2 (14:45→18:51)
[2023-12-23] MEDS: methylPREDNISolone SOD SUCCI 125 MG/2 ML VIAL IV STA (15:17)
[2023-12-23] MEDS: cefTRIAXone IN SWFI 1,000 MG/10 ML SYRINGE IVP STA (15:17)
[2023-12-23 15:38] LABS: ABG Base Excess -3.2 mmol/L; ABG HCO3 23 mmol/L (21-25); ABG PCO2 49 mmHg (35-45); ABG PH 7.29 (7.35-7.45); ABG PO2 120 mmHg (83-108); ABG TCO2 25 mmol/L (19-24); Allen Test Performed? Yes
[2023-12-23 15:40] LABS: ABG Oxygen Saturation 97.8 % (94-97)
[2023-12-23] MEDS: IPRATROPIUM-ALBUTEROL 3 ML NEB INHALATION SCH (15:49)
[2023-12-23] MEDS ORDERED: ONDANSETRON 4 MG/2 ML VIAL IVP PRN (17:08)
[2023-12-23] MEDS ORDERED: ACETAMINOPHEN TAB 325 MG TAB PO PRN (17:08)
[2023-12-23] MEDS ORDERED: LORazepam 2 MG/ML INJ IV PRN (17:08)
[2023-12-23] MEDS ORDERED: ARTIFICIAL TEARS-HYPROMELLOSE DROPS 15 ML BTL BOTH EYES PRN (17:08)
--- NOTE | 2023-12-23 17:14 | P.HPIM ---
History of Present Illness H&P Date: 12/23/23 History of Presenting Illness: Patient is a very pleasant 78-year-old male with a past medical history of COPD home oxygen dependent on 3 L, reports stopping smoking March 27, 2023 after over 50 years of use, hypertension, and hyperlipidemia. He presented to the emergency department with a chief complaint of increased shortness of breath. Patient reports experiencing increased shortness of breath, productive cough 3 days ago Review of systems: Pertinent positives and negatives as discussed in HPI, a complete review of systems was performed and all other systems are negative. Physical exam: Vital signs reviewed and stable. General: Nontoxic, no distress and appears stated age. Derm: Skin warm and dry, normal coloration for ethnicity. Head: Atraumatic, normocephalic and symmetric. Eyes: EOMs intact, no lid lag, and anicteric sclera Mouth: no lip lesions, mucus membranes moist Cardiovascular: regular rate and rhythm with normal S1S2, no murmur, positive po sterior tibial pulses bilaterally, and cap refill < 2 seconds. Lungs: Increased respiratory effort with accessory muscle usage on BiPAP with FiO2 of 50%, respirations labored. Lungs significantly diminished throughout Abdominal: soft, round and distended, nontender to palpation, no guarding, no a ppreciable organomegaly Ext: ROM intact. No gross muscle atrophy, 1+ bilateral lower extremity pitting edema, no contractures Neuro: Speech clear, face symmetrical and CN II-XII grossly intact with no noted focal neuro deficits Psych: Alert and oriented to person, place, time, and situation. Appropriate and pleasant affect. Assessment and Plan of Care: Acute on chronic respiratory failure with hypoxia and hypercapnia CHF exacerbation -Consult to Pulmonology -Oxygenation to be administered and titrated as needed to maintain SPO2 equal to or greater than 92% -Telemetry monitoring. -Continuous Pulse-oximetry -Duonebs as needed for SOB and/or wheezing -Incentive Spirometry -Steroids: solumedrol -Antibiotics: ceftriaxone I reviewed the documentation as provided by the YOLANDA above, who is the original author of this note. I agree with the documented assessment and plan, with the following changes: Patient was noted to have weight gain, dependent edema, orthopnea, significant work of breathing during my examination. His chest x-ray was reviewed and personally interpreted appear to have reticular infiltrates consistent with early edema. He also appears to have multiple runs of supraventricular tachycardia on telemetry while EKG demonstrated narrow complex sinus tachycardia without evidence of ischemia. Echocardiogram was completed and pending. Repeat ABG demonstrated a pH of 7.29, pCO2 of 49, pO2 of 120 on FiO2 of 40% with BiPAP settings of 14/5. The patient was adamant about not wanting to escalate care and in fact when asked about hospice services, he requested comfort care after extensive discussion. We will start morphine PRN and gtt for air hunger, ativan PRN for anxiety/agitation, scopolamin patch, atropine gtt PRN. Consult to hospice was placed. More than 50% of my time seeing and evaluating this patient independently of our nurse practitioner above. Past Medical History Past Medical History: COPD Additional Past Medical History / Comment(s): Pt on continuous home oxygen @ 3L/min since 03/28/23, History of Any Multi-Drug Resistant Organisms: None Reported Past Surgical History: Adenoidectomy, Orthopedic Surgery, Tonsillectomy Past Anesthesia/Blood Transfusion Reactions: No Reported Reaction Past Psychological History: No Psychological Hx Reported Smoking Status: Current every day smoker Past Alcohol Use History: None Reported Past Drug Use History: None Reported Medications and Allergies Home Medications Medication Instructions Recorded Confirmed Type Aspirin EC [Ecotrin Low Dose] 81 mg PO DAILY 03/29/23 12/23/23 History Atorvastatin [Lipitor] 20 mg PO HS 03/29/23 12/23/23 History Fluticasone/Umeclidin/Vilanter 1 puff INHALATION RT-DAILY 12/23/23 12/23/23 History [Trelegy Ellipta 200-62.5-25] Allergies Allergy/AdvReac Type Severity Reaction Status Date / Time melatonin Allergy Hallucinati Verified 12/23/23 17:07 ons metformin AdvReac Mild Unknown Verified 12/23/23 11:44 metformin AdvReac Abdominal Uncoded 12/23/23 09:59 Pain Physical Exam Osteopathic Statement: *. No significant issues noted on an osteopathic structural exam other than those noted in the History and Physical/Consult. Vitals: Vital Signs Temp Pulse Resp BP Pulse Ox FiO2 12/23/23 13:48 113 H 28 H 142/98 97 12/23/23 13:03 115 H 12/23/23 12:24 108 H 12/23/23 11:54 109 H 22 154/103 97 12/23/23 11:41 40 12/23/23 11:14 110 H 27 H 138/89 98 12/23/23 11:10 110 H 23 139/90 98 12/23/23 11:05 26 H 12/23/23 11:00 112 H 18 120/78 98 12/23/23 10:50 113 H 26 H 120/78 98 12/23/23 10:40 113 H 21 126/85 98 12/23/23 10:30 113 H 29 H 121/88 98 12/23/23 10:20 117 H 29 H 121/88 98 12/23/23 10:10 120 H 24 138/83 98 12/23/23 10:06 120 H 12/23/23 10:00 118 H 19 141/87 98 12/23/23 09:50 120 H 26 H 141/87 98 12/23/23 09:40 114 H 26 H 144/81 99 12/23/23 09:30 118 H 31 H 177/87 98 12/23/23 09:27 98.6 F 115 H 24 144/81 98 50 12/23/23 09:20 177/87 99 12/23/23 09:14 99 Intake and Output 12/22/23 12/23/23 12/23/23 22:59 06:59 14:59 Other: Weight 83.915 kg Results CBC & Chem 7: 12/23/23 09:23 12/23/23 09:23 Labs: Abnormal Lab Results - Last 24 Hours (Table) 12/23/23 12/23/23 12/23/23 Range/Units 09:23 09:23 09:23 WBC 19.3 H (3.8-10.6) k/uL MCV 100.6 H (80.0-100.0) fL Neutrophils # (Manual) 14.40 H (1.3-7.7) k/uL Monocytes # (Manual) 2.51 H (0-1.0) k/uL Metamyelocytes # (Man) 0.39 H (0) k/uL VBG pH (7.31-7.41) VBG pCO2 (37-51) mmHg BUN 25 H (9-20) mg/dL Glucose 346 H (74-99) mg/dL Plasma Lactic Acid Juan 2.5 H* (0.7-2.0) mmol/L 12/23/23 Range/Units 09:23 WBC (3.8-10.6) k/uL MCV (80.0-100.0) fL Neutrophils # (Manual) (1.3-7.7) k/uL Monocytes # (Manual) (0-1.0) k/uL Metamyelocytes # (Man) (0) k/uL VBG pH 7.29 L (7.31-7.41) VBG pCO2 52 H (37-51) mmHg BUN (9-20) mg/dL Glucose (74-99) mg/dL Plasma Lactic Acid Juan (0.7-2.0) mmol/L
--- NOTE | 2023-12-23 17:15 | XR ---
EXAMINATION: XR chest 1V portable DATE AND TIME: 12/23/2023 5:09 PM CLINICAL INDICATION: PHH; worsening hypoxia TECHNIQUE: Departmental protocol COMPARISON: 12/23/2023 FINDINGS / IMPRESSION: There is mild silhouetting of the pulmonary vasculature by a fine reticular pattern and coarse reticu lar pattern of increased density bilaterally, but clinical diagnosis. The pattern can correlate with a clinical diagnosis of mild interstitial phase pulmonary edema or interstitial lung disease. The pleural spaces are negative. The cardiac silhouette is not enlarged. The remainder of the mediastinal silhouette is unremarkable. The skeletal structures and soft tissues are negative for acute findings.
[2023-12-23 17:25] VITALS: PULSE 113
[2023-12-23] MEDS: SCOPOLAMINE 1 MG/72 HR PATCH TRANSDERM SCH (17:56)
[2023-12-23] MEDS: MORPHINE SULFATE (100 MG/2 ML) 100 MG in SODIUM CHLORIDE 0.9% 100 ML IV SCH (18:17)
[2023-12-23 19:01] VITALS: BP 152/101; RESP 28; TEMP 98.3
[2023-12-23] MEDS: MORPHINE SULFATE 4 MG/ML SYRINGE IVP STA (19:07)
[2023-12-23] MEDS: LORazepam 2 MG/ML INJ IV PRN (19:43)
[2023-12-23] MEDS: ATROPINE OPHTH SOLN 1% 5ML BTL SUBLINGUAL PRN (20:11)
--- NOTE | 2023-12-23 22:16 | P.CNPUL ---
History of Present Illness Consult date: 12/23/23 Reason for consult: dyspnea, COPD History of present illness: This is a 78-year-old male patient with advanced COPD FEV1 of 34% of predicted diffusion capacity of 27% predicted, oxygen dependent to quit smoking recently maintained on 3 L in general and maintained on Trelegy Ellipta 1 puff a day. Also known to have a nonspecific pulmonary nodule in the right upper lobe that has been carrying a low metabolic activity. Has history of coronary artery disease hypertension and stage II chronic kidney disease. Patient has been having progressive dyspnea and presented to the emergency department with respiratory failure and immediately placed on the BiPAP pressures of 12 over 6 cm of water and moved to the intensive care unit. Patient and his family have made commitment not to intubate and he is a DNR/DNI CODE STATUS. Subsequently after arriving to the floor, I met the patient and the family and based on patient's poor quality of life and poor health status, the patient has been switched to comfort care. Morphine drip has been initiated at 3 mg an hour. Despite being on a morphine drip, his breathing continues to be labored and the patient is using accessory muscles of breathing. Family is at the bedside. Reviewed the chest x-ray is consistent with COPD CAT scan of the chest abdomen and pelvis was also done in the emergency department revealing emphysema with some limited consolidation in the right middle lobe and the lingula suggestive of an early pneumonia, 2 nodular densities in the left lung with a new finding compared to the earlier CAT scan and another stable right upper lobe pulmonary nodule. While on the BiPAP, the patient's pH was at 7.29 with a pCO2 of 49 and pO2 of 120. His lactic acid is at 2.8. proBNP level is 4320. White cell count of 19.3. Given Ativan. Given a dose of Lasix in the emergency department. Despite BiPAP and initial interventions of bronchodilators and steroids and diuretics, the patient showed no major clinical response and decision was to proceed with end-of-life/hospice care. Review of Systems ROS unobtainable: due to mental status Past Medical History Past Medical History: Coronary Artery Disease (CAD), COPD, Hyperlipidemia, Hypertension, Renal Disease (Stage II chronic kidney disease) Additional Past Medical History / Comment(s): Pt on continuous home oxygen @ 3L/min since 03/28/23, History of Any Multi-Drug Resistant Organisms: None Reported Past Surgical History: Adenoidectomy, Orthopedic Surgery, Tonsillectomy Past Anesthesia/Blood Transfusion Reactions: No Reported Reaction Past Psychological History: No Psychological Hx Reported Smoking Status: Current every day smoker Past Alcohol Use History: None Reported Past Drug Use History: None Reported - Past Family History Mother History Unknown: Yes Medications and Allergies Home Medications Medication Instructions Recorded Confirmed Type Aspirin EC [Ecotrin Low Dose] 81 mg PO DAILY 03/29/23 12/23/23 History Atorvastatin [Lipitor] 20 mg PO HS 03/29/23 12/23/23 History Fluticasone/Umeclidin/Vilanter 1 puff INHALATION RT-DAILY 12/23/23 12/23/23 History [Trelegy Ellipta 200-62.5-25] Allergies Allergy/AdvReac Type Severity Reaction Status Date / Time melatonin Allergy Hallucinati Verified 12/23/23 17:07 ons metformin AdvReac Mild Unknown Verified 12/23/23 11:44 metformin AdvReac Abdominal Uncoded 12/23/23 09:59 Pain Physical Exam Vitals: Vital Signs Temp Pulse Pulse Resp BP BP Pulse Ox 12/23/23 20:10 28 H 12/23/23 19:24 28 H 12/23/23 17:35 98.3 F 113 H 28 H 152/101 96 12/23/23 17:09 113 H 30 H 159/102 96 12/23/23 16:17 118 H 18 154/97 97 12/23/23 16:02 116 H 12/23/23 15:50 112 H 12/23/23 15:48 12/23/23 15:22 115 H 28 H 163/98 97 12/23/23 13:48 113 H 28 H 142/98 97 12/23/23 13:03 115 H 12/23/23 12:24 108 H 12/23/23 11:54 109 H 22 154/103 97 12/23/23 11:41 12/23/23 11:14 110 H 27 H 138/89 98 12/23/23 11:10 110 H 23 139/90 98 12/23/23 11:05 26 H 12/23/23 11:00 112 H 18 120/78 98 12/23/23 10:50 113 H 26 H 120/78 98 12/23/23 10:40 113 H 21 126/85 98 12/23/23 10:30 113 H 29 H 121/88 98 12/23/23 10:20 117 H 29 H 121/88 98 12/23/23 10:10 120 H 24 138/83 98 12/23/23 10:06 120 H 12/23/23 10:00 118 H 19 141/87 98 12/23/23 09:50 120 H 26 H 141/87 98 12/23/23 09:40 114 H 26 H 144/81 99 12/23/23 09:30 118 H 31 H 177/87 98 12/23/23 09:27 98.6 F 115 H 24 144/81 98 12/23/23 09:20 177/87 99 12/23/23 09:14 99 FiO2 12/23/23 20:10 12/23/23 19:24 12/23/23 17:35 12/23/23 17:09 12/23/23 16:17 12/23/23 16:02 12/23/23 15:50 12/23/23 15:48 35 12/23/23 15:22 12/23/23 13:48 12/23/23 13:03 12/23/23 12:24 12/23/23 11:54 12/23/23 11:41 40 12/23/23 11:14 12/23/23 11:10 12/23/23 11:05 12/23/23 11:00 12/23/23 10:50 12/23/23 10:40 12/23/23 10:30 12/23/23 10:20 12/23/23 10:10 12/23/23 10:06 12/23/23 10:00 12/23/23 09:50 12/23/23 09:40 12/23/23 09:30 12/23/23 09:27 50 12/23/23 09:20 12/23/23 09:14 Intake and Output 12/23/23 12/23/23 12/23/23 06:59 14:59 22:59 Intake Total 10.383 Output Total 700 Balance -689.617 Intake: Intake, IV Titration 10.383 Amount Morphine Sulfate (100 mg/ 10.383 2 ml) 100 mg In Sodium Chloride 0.9% 100 ml @ 1 MG/HR 1.02 mls/hr IV . Q24H [facility] Rx#:[id number] Output: Urine 700 Other: Voiding Method Indwelling Catheter Weight 83.915 kg The patient is quite obtunded, still on a BiPAP pressure of 12/6 and the patient has obvious labored breathing and using accessory muscles of breathing. Head exam was generally normal. There was no scleral icterus or corneal arcus. Mucous membranes were moist. Neck was supple and without jugular venous distension, thyromegaly, or carotid bruits. Carotids were easily palpable bilaterally. There was no adenopathy. Marked diminished breath sounds bilaterally on lung examination along with scattered expiratory wheezes throughout the lung marte. Cardiac exam revealed the PMI to be normally situated and sized. The rhythm was regular and no extrasystoles were noted during several minutes of auscultation. The first and second heart sounds were normal and physiologic splitting of the second heart sound was noted. There were no murmurs, rubs, clicks, or gallops. Overall heart sounds are essentially distant at this point. Abdominal exam revealed normal bowel sounds. The abdomen was soft, non-tender, and without masses, organomegaly, or appreciable enlargement of the abdominal aorta. Examination of the extremities revealed easily palpable radial, femoral and peda l pulses. There was no cyanosis, clubbing minimal and trace edema lower extremities bilaterally. Examination of the skin revealed no evidence of significant rashes, suspicious appearing nevi or other concerning lesions. Neurologically, the patient is obtunded, withdraws only to deep painful stim ulation. Results - Laboratory Findings CBC and BMP: 12/23/23 09:23 12/23/23 09:23 ABG ABG pH 7.29 (7.35-7.45) L 12/23/23 15:34 ABG pCO2 49 mmHg (35-45) H 12/23/23 15:34 ABG pO2 120 mmHg (83-108) H 12/23/23 15:34 ABG O2 Saturation 97.8 % (94-97) H 12/23/23 15:34 PT/INR, D-dimer PT 10.7 sec (10.0-12.5) 12/23/23 09:30 INR 1.0 (<1.2) 12/23/23 09:30 Abnormal lab findings: Abnormal Labs 12/23/23 12/23/23 12/23/23 09:23 09:23 09:23 WBC 19.3 H MCV 100.6 H Neutrophils # (Manual) 14.40 H Monocytes # (Manual) 2.51 H Metamyelocytes # (Man) 0.39 H ABG pH ABG pCO2 ABG pO2 ABG Total CO2 ABG O2 Saturation VBG pH VBG pCO2 BUN 25 H Glucose 346 H Plasma Lactic Acid Juan 2.5 H* 12/23/23 12/23/23 12/23/23 09:23 15:34 16:30 WBC MCV Neutrophils # (Manual) Monocytes # (Manual) Metamyelocytes # (Man) ABG pH 7.29 L ABG pCO2 49 H ABG pO2 120 H ABG Total CO2 25 H ABG O2 Saturation 97.8 H VBG pH 7.29 L VBG pCO2 52 H BUN Glucose Plasma Lactic Acid Juan 2.8 H* - Diagnostic Findings Chest x-ray: image reviewed Assessment and Plan Plan: Acute hypoxic /hypercapnic respiratory failure due to COPD exacerbation. This patient advanced COPD. Presented to the hospital because of severe respiratory distress, placed on BiPAP and despite that continued to have labored breathing, actively bronchospastic and wheezy, using accessory muscles of breathing. Advanced COPD with an FEV1 of 34% of predicted and a diffusion capacity of 27% of predicted at baseline maintained on Trelegy Ellipta on outpatient basis Chronic hypoxic respiratory failure maintained on O2 at 3 L/min nasal cannula Acute COPD exacerbation with secondary respiratory failure, possible underlying pneumonia. viral screen has been negative. Bilateral pulmonary nodular densities, the n patient odule in the right upper lobe is stable. New lesions are noted on the left. Coronary artery disease Hypertension Hyperlipidemia Chronic stage II kidney disease History of smoking Cholelithiasis Mild lactic acidosis Acute leukocytosis secondary to above Plan Patient is a DNR/DNI CODE STATUS. Currently on a BiPAP. Continues to have labored breathing, poorly responsive to BiPAP, opted for end-of-life care and hospice care. Family at the bedside and they want us to aggressively pursue end-of-life care. The patient has already been started on morphine drip at 10 mg an hour. I am going to give the patient additional 4 mg of IV morphine and increase the drip up to 6 mg an hour and titrated to comfort level. The goal of treatment should be comfort measures only. May be a good candidate for inpatient hospice. Will consult hospice services.
--- NOTE | 2023-12-24 08:50 | P.PN ---
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 He presented to the emergency department with a chief complaint of increased shortness of breath. Patient reports experiencing shortness of breath and productive cough 3 days ago that has significantly worsened over the past 24 hours. Patient reports inability to lie flat and reports a 15 to 20 pound weight gain over the past 6 months. He underwent full evaluation in the emergency department. Upon arrival patient in acute respiratory distress requiring placement on BiPAP with FiO2 of 50%. Patient was tachycardic with heart rate up to 120 and tachypneic with respiratory rate in the 30s. Blood pressure elevated up to 177/87. EKG was completed showing sinus tachycardia at 118 beats per minute. Chest x-ray revealing COPD with bibasilar atelectasis. CT chest abdomen and pelvis revealing 2 new nodular densities in the left lung base laterally unable to exclude neoplasm, and increasing partially consolidative opacities in the anterior right middle lobe and the lingula concerning for acute pneumonia along with emphysematous changes and for stable 9 mm upper lobe pulmonary nodules. His labs were completed and reviewed. CBC showing leukocytosis with WBC count of 19.3. BMP revealing prerenal azotemia with BUN of 25 and hyperglycemia with glucose of 346. Lactic acid was 2.5. Magnesium normal at 1.8. Troponin was 0.017 and proBNP was 3420. Influenza A, influenza B, RSV, and COVID PCR were negative. Patient was admitted under our services with consultation to cardiology for concerns of acute heart failure and pulmonology for acute on chronic respiratory failure secondary to advanced COPD with exacerbation from likely underlying pneumonia. As stated above, patient was placed on BiPAP and given nebulizer treatments along with 40 mg of Lasix IVP. He continued to have significantly labored breathing with a poor response to treatment including BiPAP. Patient was very adamant about being a DNR/DNI and do to his persistent labored breathing, patient and his family at bedside opted to stop treatment and initiate hospice care. Physical exam: Pt appears comfortable. Family at bedside. General: Nontoxic, appears comfortable Derm: Skin warm and dry, normal coloration for ethnicity. Head: Atraumatic, normocephalic and symmetric. Eyes: closed Mouth: no lip lesions, mucus membranes moist Cardiovascular: bradycardic rate Lungs: agonal respirations Abdominal: soft, round and distended Ext:. No gross muscle atrophy, 1+ bilateral lower extremity pitting edema, no contractures Neuro:: Pt lethargic, sedated Psych: pt lethargic, sedated Assessment and Plan of Care: Acute on chronic respiratory failure with hypoxia and hypercapnia Acute respiratory acidosis COPD exacerbation Pneumonia Lactic acidosis Hypertension Diabetes mellitus with hyperglycemia -Comfort measures only. -Symptomatic care and pain management. -Tylenol 650 mg every 4 hours as needed for fever and/or mild pain. -Artificial teardrops to bilateral eyes every 2 hours as needed for dry eyes. -Scopolamine patch. -Order placed for sublingual atropine drops and Robinul for excess secretions. -Zofran as needed for nausea and/or vomiting. -Initiate morphine infusion 1 mg/h and titrate as needed to maintain patient's comfort. -Morphine 4 mg IVP every 15 minutes as needed for severe uncontrolled breakthrough pain. -Ativan 1 mg IVP every 6 hours as needed for agitation or acute anxiety. CODE STATUS: DNR/DNI, Comfort care only Patient was seen independently by Nurse Pracitioner. This document was prepared using [employer] dictation software. Please allow for errors in supervisor endless track vehicle, while rare they do occur. I reviewed the documentation as provided by the YOLANDA above, who is the original author of this note. I agree with the documented assessment and plan, with the following changes: none Objective - Vital Signs Vital signs: Vital Signs Temp 98.3 F 12/23/23 17:35 Pulse 113 H 12/23/23 17:35 Resp 28 H 12/23/23 20:10 BP 152/101 12/23/23 17:35 Pulse Ox 96 12/23/23 17:35 FiO2 35 12/23/23 15:48 Intake & Output 12/23/23 12/24/23 12/24/23 18:59 06:59 18:59 Intake Total 1.133 83.50 Output Total 700 550 Balance -698.867 -466.50 Weight 83.915 kg Intake: Intake, IV Titration 1.133 83.50 Amount Morphine Sulfate (100 mg/ 1.133 83.50 2 ml) 100 mg In Sodium Chloride 0.9% 100 ml @ 1 MG/HR 1.02 mls/hr IV . Q24H [facility] Rx#:[id number] Output: Urine 700 550 Other: Voiding Method Indwelling Catheter - Labs CBC & Chem 7: 12/23/23 09:23 12/23/23 09:23 Labs: Abnormal Lab Results - Last 24 Hours (Table) 12/23/23 12/23/23 12/23/23 Range/Units 09:23 09:23 09:23 WBC 19.3 H (3.8-10.6) k/uL MCV 100.6 H (80.0-100.0) fL Neutrophils # (Manual) 14.40 H (1.3-7.7) k/uL Monocytes # (Manual) 2.51 H (0-1.0) k/uL Metamyelocytes # (Man) 0.39 H (0) k/uL ABG pH (7.35-7.45) ABG pCO2 (35-45) mmHg ABG pO2 (83-108) mmHg ABG Total CO2 (19-24) mmol/L ABG O2 Saturation (94-97) % VBG pH (7.31-7.41) VBG pCO2 (37-51) mmHg BUN 25 H (9-20) mg/dL Glucose 346 H (74-99) mg/dL Plasma Lactic Acid Juan 2.5 H* (0.7-2.0) mmol/L 12/23/23 12/23/23 12/23/23 Range/Units 09:23 15:34 16:30 WBC (3.8-10.6) k/uL MCV (80.0-100.0) fL Neutrophils # (Manual) (1.3-7.7) k/uL Monocytes # (Manual) (0-1.0) k/uL Metamyelocytes # (Man) (0) k/uL ABG pH 7.29 L (7.35-7.45) ABG pCO2 49 H (35-45) mmHg ABG pO2 120 H (83-108) mmHg ABG Total CO2 25 H (19-24) mmol/L ABG O2 Saturation 97.8 H (94-97) % VBG pH 7.29 L (7.31-7.41) VBG pCO2 52 H (37-51) mmHg BUN (9-20) mg/dL Glucose (74-99) mg/dL Plasma Lactic Acid Juan 2.8 H* (0.7-2.0) mmol/L
[2023-12-24] MEDS ORDERED: GLYCOPYRROLATE 1 MG TAB PO SCH (09:00)
--- NOTE | 2023-12-24 12:21 | P.DS ---
Providers Date of admission: 12/23/23 13:26 Expected date of discharge: 12/24/23 Attending physician: Pattie Giraldo MD Consults: 12/23/23 14:02 Consult Physician Routine Consulting Provider: Charlene Camara Consult Reason/Comments: copd exacerbation Do you want consulting provider notified?: Already Contacted Primary care physician: [facility] Course: Pt is . Patient under inpatient Hospice Care with family members at bedside. 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 He presented to the emergen cy department with a chief complaint of increased shortness of breath. Patient reports experiencing shortness of breath and productive cough 3 days ago that has significantly worsened over the past 24 hours. Patient reports inability to lie flat and reports a 15 to 20 pound weight gain over the past 6 months. He underwent full evaluation in the emergency department. Upon arrival patient in acute respiratory distress requiring placement on BiPAP with FiO2 of 50%. Patient was tachycardic with heart rate up to 120 and tachypneic with respiratory rate in the 30s. Blood pressure elevated up to 177/87. EKG was completed showing sinus tachycardia at 118 beats per minute. Chest x-ray revealing COPD with bibasilar atelectasis. CT chest abdomen and pelvis revealing 2 new nodular densities in the left lung base laterally unable to exclude neoplasm, and increasing partially consolidative opacities in the anterior right middle lobe and the lingula concerning for acute pneumonia along with emphysematous changes and for stable 9 mm upper lobe pulmonary nodules. His labs were completed and reviewed. CBC showing leukocytosis with WBC count of 19.3. BMP revealing prerenal azotemia with BUN of 25 and hyperglycemia with glucose of 346. Lactic acid was 2.5. Magnesium normal at 1.8. Troponin was 0.017 and proBNP was 3420. Influenza A, influenza B, RSV, and COVID PCR were negative. Patient was admitted under our services with consultation to cardiology for concerns of acute heart failure and pulmonology for acute on chronic respiratory failure secondary to advanced COPD with exacerbation from likely underlying pneumonia. As stated above, patient was placed on BiPAP and given nebulizer treatments along with 40 mg of Lasix IVP. He continued to have significantly labored breathing with a poor response to treatment including BiPAP. Patient was very adamant about being a DNR/DNI and do to his persistent labored breathing, patient and his family at bedside opted to stop treatment and initiate hospice care. Comfort measures were initiated and his family members gathered to bedside. Patient passed comfortably under hospice care on 12/24/2023 at 9:08 AM. Time of was pronounced on 12/24/2023 at 9:08 AM This document was prepared using [employer] dictation software. Please allow for errors in cafeteria cook while rare they do occur. I reviewed the documentation as provided by the YOLANDA above, who is the original author of this note. I agree with the documented assessment and plan, with the following changes: none Plan - Discharge Summary Discharge Rx Participant: No New Discharge Prescriptions: No Action Atorvastatin [Lipitor] 20 mg PO HS Aspirin EC [Ecotrin Low Dose] 81 mg PO DAILY Fluticasone/Umeclidin/Vilanter [Trelegy Ellipta 200-62.5-25] 1 puff INHALATION RT-DAILY Discharge Medication List Aspirin EC [Ecotrin Low Dose] 81 mg PO DAILY 03/29/23 [History] Atorvastatin [Lipitor] 20 mg PO HS 03/29/23 [History] Fluticasone/Umeclidin/Vilanter [Trelegy Ellipta 200-62.5-25] 1 puff INHALATION RT-DAILY 12/23/23 [History] Follow up Appointment(s)/Referral(s): Marcelo Espinoza MD [Primary Care Provider] - 1-2 days Discharge Disposition: - Preliminary Cause of Preliminary Cause of : end stage COPD
--- NOTE | 2023-12-24 22:49 | CA ---
Transthoracic Echo Report Name: Harjeet Toney Age: 78 Gender: M : 1945 Exam Date: 12/23/2023 15:39 Exam Location: [place] [facility] Ht (in): 71 Wt (lb): 185 Ordering Physician: Misha Cao Attending/Referring Phys: Magnet Valve Assembler Karlene Harris RCS Procedure CPT: Indications: chf Cardiac Hx: Technical Quality: Very technically difficult study Contrast 1: Definity Total Dose (mL): 4 Contrast 2: Total Dose (mL): MEASUREMENTS (Male / Female) Normal Values 2D ECHO LV Diastolic Diameter PLAX 4.1 cm 4.2 - 5.9 / 3.9 - 5.3 cm LV Systolic Diameter PLAX 3.1 cm IVS Diastolic Thickness 0.7 cm 0.6 - 1.0 / 0.6 - 0.9 cm LVPW Diastolic Thickness 0.7 cm 0.6 - 1.0 / 0.6 - 0.9 cm LV Relative Wall Thickness 0.4 LVOT Diameter 2.1 cm FINDINGS Left Ventricle Left ventricular ejection fraction is estimated at 55-60 %. Left ventricular cavity size normal. Left ventricular wall thickness normal. No obvious regional wall motion abnormalities. Right Ventricle Right ventricle not well visualized. Right Atrium Right atrium not well visualized. Left Atrium Left atrium not well visualized. Mitral Valve Mitral valve not well visualized. No mitral stenosis. No mitral regurgitation. Aortic Valve Aortic valve not well visualized. Tricuspid Valve Tricuspid valve not well visualized. Pulmonic Valve Pulmonic valve not well visualized. Pericardium No pericardial effusion. Aorta Aortic root and proximal ascending aorta not well visualized. CONCLUSIONS Very technically difficult study. Limited views LVEF appears to be 55-60%. Difficult to comment upon wall motion abnormality. Valvular function cannot be commented upon No pericardial effusion Previewed by: Dr Ron Sanchez (Electronically Signed) Final Date: 24 December 2023 22:48
== END 2023-12-24 11:53 | disposition expired | DRG 951 ==
LOC: EC 09:09 → 2SICU 13:26 → 3SCARD 14:53
PROVIDERS: ADMIT Internal Medicine; ATTEND Internal Medicine
PROC: 5A09357 Assistance with Respiratory Ventilation, Less than 24 Consecutive Hours, Continuous Positive Airway Pressure (ICD-10-PCS; principal; 2023-12-23)
DX: Z51.5 Encounter for palliative care (principal); J18.9 Pneumonia, unspecified organism; J96.21 Acute and chronic respiratory failure with hypoxia; J96.22 Acute and chronic respiratory failure with hypercapnia; J44.1 Chronic obstructive pulmonary disease with (acute) exacerbation; J44.0 Chronic obstructive pulmonary disease with (acute) lower respiratory infection; I13.0 Hypertensive heart and chronic kidney disease with heart failure and stage 1 through stage 4 chronic kidney disease, or unspecified chronic kidney disease; E11.22 Type 2 diabetes mellitus with diabetic chronic kidney disease; E78.5 Hyperlipidemia, unspecified; J44.9 Chronic obstructive pulmonary disease, unspecified; Z87.891 Personal history of nicotine dependence; N18.2 Chronic kidney disease, stage 2 (mild); E11.65 Type 2 diabetes mellitus with hyperglycemia; I50.9 Heart failure, unspecified; J43.9 Emphysema, unspecified; K80.20 Calculus of gallbladder without cholecystitis without obstruction; R00.0 Tachycardia, unspecified; F17.210 Nicotine dependence, cigarettes, uncomplicated; I25.10 Atherosclerotic heart disease of native coronary artery without angina pectoris; Z79.82 Long term (current) use of aspirin; Z79.899 Other long term (current) drug therapy; Z99.81 Dependence on supplemental oxygen; Z88.8 Allergy status to other drugs, medicaments and biological substances
CPT/HCPCS: 36415; 36600; 51702; 70450; 71045; 71260; 72125; 74177; 80048; 82803; 82805; 83605; 83735; 83880; 84484; 85025; 85610; 85730; 87040; 87636; 93005; 93306; 94640; 94660; 96365; 96366; 96367; 96375; 99291